=== PATIENT | male | born 1965 | race Caucasian/White ===

== ENCOUNTER 2020-05-20 20:27 | Emergency (ER) | payer OTHER ==
--- NOTE | 2020-05-20 20:37 | ERPHSYRPT ---
- History of Present Illness Time Seen by Provider: 05/20/20 20:35 Source: patient Exam Limitations: no limitations Physician History: Patient is a 54-year-old male presents to our ED with complaints of dizziness. Dizziness started approximately 1 hour prior to arrival. Patient states that when he stands up he feels as though he is losing his balance towards his right side. No syncope. No associated nausea or vomiting. No blurred vision. No falls or injuries. No trauma. No associated numbness tingling or weakness. No history of CVA. Patient is a smoker. Patient is morbidly obese. Symptoms are constant. No specific worsening or improving factors. No associated chest pain or shortness of breath. Patient voices no other complaints concerns at this t shaun. Timing/Duration: today Severity: moderate Modifying Factors: Improves With: nothing Associated Symptoms: No nausea, No vomiting, No abdominal pain, No shortness of breath, No heartburn, No diaphoresis, No cough, No chest pain, No fever, No headaches, No syncope, No seizure, No weakness Allergies/Adverse Reactions: No Known Drug Allergies Allergy (Verified 05/20/20 20:43) Home Medications: Gabapentin 600 mg PO BID 05/20/20 [History] Vilazodone HCl [Viibryd] 20 mg PO DAILY 05/20/20 [History] - Review of Systems Constitutional: No Symptoms, No Fever, No Chills Eyes: No Symptoms Ears, Nose, & Throat: No Symptoms Respiratory: No Symptoms, No Cough, No Dyspnea Cardiac: No Symptoms, No Chest Pain, No Edema, No Syncope Abdominal/Gastrointestinal: No Symptoms, No Abdominal Pain, No Nausea, No Vomiting, No Diarrhea Genitourinary Symptoms: No Symptoms, No Dysuria Musculoskeletal: No Symptoms, No Back Pain, No Neck Pain Skin: No Symptoms, No Rash Neurological: No Symptoms, No Dizziness, No Focal Weakness, No Sensory Changes Psychological: No Symptoms Endocrine: No Symptoms Hematologic/Lymphatic: No Symptoms Immunological/Allergic: No Symptoms All Other Systems: Reviewed and Negative - Nursing Vital Signs Nursing Vital Signs: Initial Vital Signs Temperature 97.4 F 05/20/20 20:31 Pulse Rate 67 05/20/20 20:31 Respiratory Rate 18 05/20/20 20:31 Blood Pressure 173/105 05/20/20 20:31 O2 Sat by Pulse Oximetry 95 05/20/20 20:31 Pain Scale Pain Intensity 0 - Physical Exam General Appearance: no apparent distress, alert Eye Exam: PERRL/EOMI, eyes nml inspection Ears, Nose, Throat Exam: normal ENT inspection, TMs normal, pharynx normal, moist mucous membranes Neck Exam: normal inspection, non-tender, supple, full range of motion Respiratory Exam: normal breath sounds, lungs clear, No respiratory distress Cardiovascular Exam: regular rate/rhythm, normal heart sounds, normal peripheral pulses Gastrointestinal/Abdomen Exam: soft, normal bowel sounds, No tenderness, No mass Back Exam: normal inspection, normal range of motion, No CVA tenderness, No vertebral tenderness Extremity Exam: normal inspection, normal range of motion, pelvis stable Neurologic Exam: alert, oriented x 3, cooperative, normal mood/affect, nml cerebellar function, nml station & gait, sensation nml, other (Head motion does not reproduce symptomology.), No motor deficits, No confusion, No intoxicated appearance, No motor weakness, No facial droop, No slurred speech, No aphasia, No dysarthria Skin Exam: normal color, warm, dry, No rash Lymphatic Exam: No adenopathy SpO2 Interpretation: normal SpO2: 95 O2 Delivery: Room Air - Course Nursing assessment & vital signs reviewed: Yes EKG Interpreted by Me: RATE (67), Sinus Rhythm, NORMAL AXIS, NORMAL INTERVALS - Radiology Exams Chest X-ray Interpretation: Interpreted by me (No consolidation no infiltrates no effusion. Normal bony thorax. No pneumothorax. Borderline cardiomegaly.) - CT Exams Head CT Interpretation: Tele-radiologist Report (Intracranial abnormality.) Ordered Tests: Active Orders 24 hr Category Date Time Status Manager Pmo STAT Care 05/20/20 20:35 Active EKG-ER Only STAT Care 05/20/20 20:34 Active IV Insertion STAT Care 05/20/20 20:34 Active NPO (ED) STAT Care 05/20/20 20:34 Active Pulse Oximetry (ED) STAT Care 05/20/20 20:34 Active CHEST 1 VIEW (PORTABLE) Stat Exams 05/20/20 20:39 Taken HEAD WITHOUT CONTRAST [CT] Stat Exams 05/20/20 20:34 Taken CBC W DIFF Stat Lab 05/20/20 20:53 Completed CMP Stat Lab 05/20/20 20:53 Completed ETHYL ALCOHOL Stat Lab 05/20/20 20:53 Completed MAGNESIUM Stat Lab 05/20/20 20:53 Completed TROPONIN Q3H Lab 05/20/20 20:53 Completed TROPONIN Q3H Lab 05/20/20 23:45 Ordered TROPONIN Q3H Lab 05/21/20 02:45 Ordered TROPONIN Q3H Lab 05/21/20 05:45 Ordered TROPONIN Q3H Lab 05/21/20 08:45 Ordered TSH [TSH, 3RD Generation] Stat Lab 05/20/20 20:53 Completed Urine Triage Profile Stat Lab 05/20/20 21:00 Completed Transfer Order Routine Transfer 05/20/20 Ordered Medication Summary Generic Name Dose Route Start Last Admin Trade Name Freq PRN Reason Stop Dose Admin Sodium Chloride 1,000 mls @ 100 mls/hr 05/20/20 20:45 05/20/20 20:43 Sodium Chloride 0.9% 1000 Ml IV 06/19/20 20:44 100 mls/hr .Q10H MICKI Administration Discontinued Medications Generic Name Dose Route Start Last Admin Trade Name Freq PRN Reason Stop Dose Admin Aspirin 324 mg 05/20/20 22:25 05/20/20 22:28 Baby Aspirin 81 Mg Chew PO 05/20/20 22:26 324 mg STAT ONE Administration Nicotine 21 mg 05/20/20 22:09 05/20/20 22:19 Nicoderm Cq 21 Mg TOP 05/20/20 22:10 21 mg STAT ONE Administration Lab/Rad Data: Laboratory Result Diagrams 05/20/20 20:53 05/20/20 20:53 Laboratory Results 05/20/20 05/20/20 05/20/20 Range/Units 21:00 20:53 20:53 WBC (4.0-10.5) K/mm3 RBC (4.1-5.6) M/mm3 Hgb (12.5-18.0) gm/dl Hct (42-50) % MCV (78-100) fl MCH (26-32) pg MCHC (32-36) g/dl RDW (11.5-14.0) % Plt Count (150-450) K/mm3 MPV (7.5-11.0) fl Gran % (36.0-66.0) % Eos # (Auto) (0-0.5) Absolute Lymphs (auto) (1.0-4.6) Absolute Monos (auto) (0.0-1.3) Lymphocytes % (24.0-44.0) % Monocytes % (0.0-12.0) % Eosinophils % (0.00-5.0) % Basophils % (0.0-0.4) % Absolute Granulocytes (1.4-6.9) Basophils # (0-0.4) Sodium (137-145) mmol/L Potassium (3.5-5.1) mmol/L Chloride (98-107) mmol/L Carbon Dioxide (22-30) mmol/L Anion Gap (5-15) MEQ/L BUN (9-20) mg/dL Creatinine (0.66-1.25) mg/dL Estimated GFR ML/MIN Glucose (74-106) mg/dL Calcium (8.4-10.2) mg/dL Magnesium (1.6-2.3) mg/dL Total Bilirubin (0.2-1.3) mg/dL AST (17-59) U/L ALT (0-50) U/L Alkaline Phosphatase (38-126) U/L Troponin I < 0.012 (0.000-0.034) ng/mL Serum Total Protein (6.3-8.2) g/dL Albumin (3.5-5.0) g/dL TSH 3rd Generation 1.130 (0.47-4.68) mIU/L Urine Opiates Level NEGATIVE (NEGATIVE) Ur Methadone NEGATIVE (NEGATIVE) Urine Barbiturates NEGATIVE (NEGATIVE) Ur Phencyclidine (PCP) NEGATIVE (NEGATIVE) Urine Amphetamine NEGATIVE (NEGATIVE) U Benzodiazepine Level NEGATIVE (NEGATIVE) Urine Cocaine NEGATIVE (NEGATIVE) Urine Marijuana (THC) NEGATIVE (NEGATIVE) Ethyl Alcohol (0-10) mg/dL 05/20/20 05/20/20 Range/Units 20:53 20:53 WBC 8.7 (4.0-10.5) K/mm3 RBC 4.10 (4.1-5.6) M/mm3 Hgb 13.4 (12.5-18.0) gm/dl Hct 41.1 L (42-50) % MCV 100.2 H (78-100) fl MCH 32.7 H (26-32) pg MCHC 32.6 (32-36) g/dl RDW 14.0 (11.5-14.0) % Plt Count 182 (150-450) K/mm3 MPV 9.4 (7.5-11.0) fl Gran % 48.0 (36.0-66.0) % Eos # (Auto) 0.13 (0-0.5) Absolute Lymphs (auto) 3.79 (1.0-4.6) Absolute Monos (auto) 0.59 (0.0-1.3) Lymphocytes % 43.4 (24.0-44.0) % Monocytes % 6.8 (0.0-12.0) % Eosinophils % 1.5 (0.00-5.0) % Basophils % 0.3 (0.0-0.4) % Absolute Granulocytes 4.19 (1.4-6.9) Basophils # 0.03 (0-0.4) Sodium 139 (137-145) mmol/L Potassium 3.9 (3.5-5.1) mmol/L Chloride 106 (98-107) mmol/L Carbon Dioxide 29 (22-30) mmol/L Anion Gap 8.5 (5-15) MEQ/L BUN 17 (9-20) mg/dL Creatinine 1.22 (0.66-1.25) mg/dL Estimated GFR > 60.0 ML/MIN Glucose 142 H (74-106) mg/dL Calcium 9.4 (8.4-10.2) mg/dL Magnesium 2.2 (1.6-2.3) mg/dL Total Bilirubin 0.40 (0.2-1.3) mg/dL AST 44 (17-59) U/L ALT 52 H (0-50) U/L Alkaline Phosphatase 92 (38-126) U/L Troponin I (0.000-0.034) ng/mL Serum Total Protein 7.8 (6.3-8.2) g/dL Albumin 4.2 (3.5-5.0) g/dL TSH 3rd Generation (0.47-4.68) mIU/L Urine Opiates Level (NEGATIVE) Ur Methadone (NEGATIVE) Urine Barbiturates (NEGATIVE) Ur Phencyclidine (PCP) (NEGATIVE) Urine Amphetamine (NEGATIVE) U Benzodiazepine Level (NEGATIVE) Urine Cocaine (NEGATIVE) Urine Marijuana (THC) (NEGATIVE) Ethyl Alcohol < 10 (0-10) mg/dL - Progress Progress: improved Progress Note: 05/20/20 22:27 Patient reassessed. Repeat neuro exam within normal limits. We attempted to ambulate patient and upon standing patient began to feel dizzy. However patient states that he feels dizzy while he is lying flat. Dizziness is not worse when he moves his head. CT negative for acute intracranial pathology. IV fluids infused. Aspirin administered. Case discussed with patient's primary care doctor Dr. Jones subs admission to observation. Plan of care discussed with patient. He agrees to admission to [facility] for further evaluation and treatment. Discussed with .: Tim Will see patient in: hospital (observation) Counseled pt/family regarding: lab results, diagnosis, rad results, smoking cessation - Departure Departure Disposition: Observation Clinical Impression: Dizziness, Near syncope Condition: Stable Critical Care Time: No Referrals: KUSH KAUR [ACTIVE STAFF] - Instructions: Dizziness, Nonvertigo, (DC)
[2020-05-20] MEDS ORDERED: Sodium Chloride 0.9% 1000 ML 1,000 ML ONE (20:41)
[2020-05-20] MEDS ORDERED: Sodium Chloride 0.9% 1000 ML 1,000 ML IV SCH (20:45)
[2020-05-20 20:56] LABS: Absolute Neutrophil Ct (ANC) 4.19 (1.4-6.9); BASOPHIL % 0.3 % (0.0-0.4); Basophil (Absolute #) 0.03 (0-0.4); Eosinophil % 1.5 % (0.00-5.0); Eosinophil (Absolute #) 0.13 (0-0.5); Hematocrit 41.1 % (42-50); Hemoglobin 13.4 gm/dl (12.5-18.0); Lymphocyte (Absolute #) 3.79 (1.0-4.6); Lymphocytes % 43.4 % (24.0-44.0); Mean Cell Volume 100.2 fl (78-100); Mean Corpuscular Hemoglobin 32.7 pg (26-32); Mean Corpuscular Hgb Concent. 32.6 g/dl (32-36); Mean Platelet Volume 9.4 fl (7.5-11.0); Monocyte (Absolute #) 0.59 (0.0-1.3); Monocytes % 6.8 % (0.0-12.0); Platelet Count 182 K/mm3 (150-450); White Blood Count 8.7 K/mm3 (4.0-10.5)
[2020-05-20 21:08] LABS: ALBUMIN 4.2 g/dL (3.5-5.0); ALKALINE PHOSPHATASE 92 U/L (38-126); ANION GAP 8.5 MEQ/L (5-15); BLOOD UREA NITROGEN 17 mg/dL (9-20); CHLORIDE 106 mmol/L (98-107); Calcium 9.4 mg/dL (8.4-10.2); Carbon Dioxide 29 mmol/L (22-30); Creatinine 1 1.22 mg/dL (0.66-1.25); EST GLOMERULAR FILTRATION RATE > 60.0 ML/MIN; Glucose 142 mg/dL (74-106); MAGNESIUM 2.2 mg/dL (1.6-2.3); Potassium 3.9 mmol/L (3.5-5.1); SGOT/AST 44 U/L (17-59); SGPT/ALT 52 U/L (0-50); SODIUM 139 mmol/L (137-145); Total Protein 7.8 g/dL (6.3-8.2)
[2020-05-20 21:15] LABS: ETHYL ALCOHOL < 10 mg/dL (0-10)
[2020-05-20 21:47] LABS: Amphetamine,Urine NEGATIVE (NEGATIVE); Barbiturate,Urine NEGATIVE (NEGATIVE); Benzodiazepine,Urine NEGATIVE (NEGATIVE); Cocaine,Urine NEGATIVE (NEGATIVE); Methadone,Urine NEGATIVE (NEGATIVE); Opiate,Urine NEGATIVE (NEGATIVE); PCP,Urine NEGATIVE (NEGATIVE); THC,Urine NEGATIVE (NEGATIVE)
[2020-05-20] MEDS ORDERED: Nicoderm CQ 21 MG TOP ONE (22:09)
[2020-05-20] MEDS ORDERED: BABY ASPIRIN 81 MG CHEW PO ONE (22:25)
[2020-05-20 23:09] VITALS: BP 173/108; PULSE 75; O2SAT 96
--- NOTE | 2020-05-21 07:46 | XRAY ---
Exam: AP portable chest film from 05/20/2010. Comparison: None. Indication: 54-year-old with dizziness. The transverse heart size appears within normal limits. There is adequate inflation of the lungs. The vascular lung markings are mildly prominent in a diffuse manner. I see no air space infiltrates or pleural effusions. There is no pneumothorax. I cannot exclude some fine Maty B-lines within the costophrenic angles. No acute osseous process is seen. Mild osteophyte formation is seen within the lower thoracic spine. Impression: 1. Mild diffuse bilateral passive venous congestion is seen. Correlate clinically. I called this report to the emergency Department physician at approximately 7:35 AM on 05/21/2020. 2. No air space infiltrates or other acute disease is seen.
--- NOTE | 2020-05-21 08:20 | XRAY ---
Exam: CT of the head without IV contrast from 05/20/2020. CTDI: 53.92 mGy Comparison: None. Indication: 54-year-old male with dizziness. Technique: Non-IV contrast axial images were obtained through the brain. Reconstructed coronal and sagittal images were created and reviewed. Findings: The ventricles appear of normal size and configuration. No focal mass effect or midline shift is seen. No acute intracranial bleed or abnormal extra-axial fluid collection is seen. Some calcification is seen within the anterior aspect of the falx of incidental note. The thomas matter-white matter interfaces appear unremarkable. No abnormal low attenuation cortical density is seen to suggest an infarct within a major cerebral or cerebellar artery distribution. Structures of the posterior fossa appear unremarkable. The cortical sulci and basilar cisterns appear unremarkable for age. The calvarium of the skull is intact without evidence of fracture. The visualized paranasal sinuses appear clear without evidence of air-fluid levels or significant mucoperiosteal thickening. Mastoid air cells are clear without effusion. The middle ear cavities appear grossly unremarkable. The orbits reveal no gross abnormality. Impression: 1. No acute intracranial bleed or other acute intracranial process is seen.
== END 2020-05-20 23:27 | disposition left against medical advice (07) ==
LOC: ED 20:27
DX: R42 Dizziness and giddiness (principal); R55 Syncope and collapse
CPT/HCPCS: 36415; 70450; 71045; 80053; 80307; 83735; 84443; 84484; 85025; 93005; 93041; 94760; 96360; 99284; G0480; A9270-GY

== ENCOUNTER 2021-01-12 08:39 | Emergency (ER) | payer OTHER ==
--- NOTE | 2021-01-12 09:26 | ERPHSYRPT ---
- History of Present Illness Source: patient Exam Limitations: other (Poor historian) Patient Subjective Stated Complaint: Pt states "My left ear is swollen and hurts, I have a cyst on my groin that is hurting, my lower back is numb and sending tingles down my legs and my left leg has been swollen but it is a little better now." Triage Nursing Assessment: Pt presented alert and oriented X 3, skin pwd Pt states several complaints going on for the past 6 months. Pt stated he does not have a dr now. Pt ambualtes with an upright slow gait with the assistance of a cane. Physician History: 55 yo wm w multiple complaints. Pt is obese and noncompliant w his medical care. He complains of L otalgia/Dc/pain x 1 wk. Pt also complains of L inguinal abscess x 3-4 days and related to my nurse that his LLE has been edematous but improving. He has not gotten his CV19 vaccine, and I educated him on the importance of doing so w his medical conditions. Pt is not taking any meds for his HTN/DM. He denies CP/dyspnea/cough/fever/coryza/dysuria/hematuria. Timing/Duration: other (3days+) Modifying Factors: Improves With: nothing Associated Symptoms: No nausea, No vomiting, No abdominal pain, No shortness of breath, No heartburn, No diaphoresis, No cough, No chills, No chest pain, No fever, No headaches, No loss of appetite, No malaise, No rash, No syncope, No seizure, No weakness Allergies/Adverse Reactions: No Known Drug Allergies Allergy (Verified 05/20/20 20:43) Home Medications: Gabapentin 600 mg PO BID 05/20/20 [History] Vilazodone HCl [Viibryd] 20 mg PO DAILY 05/20/20 [History] Hx Tetanus, Diphtheria Vaccination/Date Given: No Hx Influenza Vaccination/Date Given: Yes Hx Pneumococcal Vaccination/Date Given: No Immunizations Up to Date: Yes Travel Risk - International Travel Have you traveled outside of the country in past 3 weeks: No - Coronavirus Screening Are you exhibiting any of the following symptoms?: No Close contact with a COVID-19 positive Pt in past 14-21 Days: No - Vaccine Status Have you recieved a Covid-19 vaccination: No - Review of Systems Constitutional: No Symptoms Eyes: No Symptoms Ears, Nose, & Throat: No Symptoms, Ear Pain Respiratory: No Symptoms Cardiac: No Symptoms Abdominal/Gastrointestinal: No Symptoms Genitourinary Symptoms: No Symptoms Musculoskeletal: No Symptoms, Back Pain Skin: Skin Lesions Neurological: No Symptoms Psychological: No Symptoms Endocrine: No Symptoms Hematologic/Lymphatic: No Symptoms Immunological/Allergic: No Symptoms - Past Medical History Pertinent Past Medical History: Yes Neurological History: No Pertinent History ENT History: No Pertinent History Cardiac History: No Pertinent History Respiratory History: No Pertinent History Endocrine Medical History: No Pertinent History Musculoskeletal History: Degenerative Disk Disease GI Medical History: No Pertinent History History: No Pertinent History Psycho-Social History: No Pertinent History, Bipolar Male Reproductive Disorders: No Pertinent History Other Medical History: 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, CARPEL TUNNEL - Past Surgical History Past Surgical History: Yes Male Surgical History: Vasectomy - Social History Smoking Status: Current every day smoker How long have you smoked: years Exposure to second hand smoke: Yes Drug Use: none Patient Lives Alone: No Significant Family History: no pertinent family hx - Nursing Vital Signs Nursing Vital Signs: Initial Vital Signs Temperature 97.5 F 01/12/21 08:45 Pulse Rate 93 H 01/12/21 08:45 Respiratory Rate 20 01/12/21 08:45 Blood Pressure 176/105 01/12/21 08:45 O2 Sat by Pulse Oximetry 96 01/12/21 08:45 Pain Scale Pain Intensity 4 - Physical Exam General Appearance: no apparent distress, obese (Morbidly) Eye Exam: PERRL/EOMI, eyes nml inspection Ears, Nose, Throat Exam: pharynx normal, other (L canal edematous w exudat) Neck Exam: normal inspection, non-tender Respiratory Exam: normal breath sounds, lungs clear, airway intact, No respiratory distress Cardiovascular Exam: regular rate/rhythm, normal heart sounds, No murmur Gastrointestinal/Abdomen Exam: soft, normal bowel sounds, No tenderness Male Genitalia Exam: normal genitalia Back Exam: vertebral tenderness (Chronic Lumbar) Neurologic Exam: alert, oriented x 3, 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, 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 tested, normal mood/affect Skin Exam: other (L inguinal lesion/No discharge/No erythema) SpO2 Interpretation: normal SpO2: 96 O2 Delivery: Room Air - Course Nursing assessment & vital signs reviewed: Yes - Radiology Ultrasound Exam Venous Lower Extremity Ultrasound: discussed w/radiologist (No DVT) Other Ultrasound: discussed w/radiologist (L groin complex cystic mass) Ordered Tests: Active Orders 24 hr Category Date Time Status EXTREMITY NON VASCULAR [US] Stat Exams 01/12/21 10:57 Completed VENOUS UNILAT/LIMITED EXTREMIT [US] Stat Exams 01/12/21 10:57 Completed CBC W DIFF Stat Lab 01/12/21 09:20 Completed CMP Stat Lab 01/12/21 09:20 Completed Lab/Rad Data: Laboratory Result Diagrams 01/12/21 09:20 01/12/21 09:20 Laboratory Results 01/12/21 01/12/21 Range/Units 09:20 09:20 WBC 9.8 (4.0-10.5) K/mm3 RBC 4.94 (4.1-5.6) M/mm3 Hgb 15.8 (12.5-18.0) gm/dl Hct 48.3 (42-50) % MCV 97.8 (78-100) fl MCH 32.0 (26-32) pg MCHC 32.7 (32-36) g/dl RDW 12.9 (11.5-14.0) % Plt Count 242 (150-450) K/mm3 MPV 9.1 (7.5-11.0) fl Gran % 72.2 H (36.0-66.0) % Eos # (Auto) 0.11 (0-0.5) Absolute Lymphs (auto) 2.03 (1.0-4.6) Absolute Monos (auto) 0.57 (0.0-1.3) Lymphocytes % 20.7 L (24.0-44.0) % Monocytes % 5.8 (0.0-12.0) % Eosinophils % 1.1 (0.00-5.0) % Basophils % 0.2 (0.0-0.4) % Absolute Granulocytes 7.08 H (1.4-6.9) Basophils # 0.02 (0-0.4) Sodium 137 (137-145) mmol/L Potassium 3.5 (3.5-5.1) mmol/L Chloride 99 (98-107) mmol/L Carbon Dioxide 29 (22-30) mmol/L Anion Gap 13.2 (5-15) MEQ/L BUN 9 (9-20) mg/dL Creatinine 0.85 (0.66-1.25) mg/dL Estimated GFR > 60.0 ML/MIN Glucose 168 H (74-106) mg/dL Calcium 9.8 (8.4-10.2) mg/dL Total Bilirubin 0.70 (0.2-1.3) mg/dL AST 48 (17-59) U/L ALT 50 (0-50) U/L Alkaline Phosphatase 99 (38-126) U/L Serum Total Protein 9.0 H (6.3-8.2) g/dL Albumin 4.9 (3.5-5.0) g/dL - Progress Counseled pt/family regarding: lab results, diagnosis, need for follow-up, rad results - Departure Departure Disposition: Home Clinical Impression: Otitis externa, Abscess, Hypertension, Diabetes Condition: Stable Critical Care Time: No Referrals: JOEL PRITCHETT MD [ACTIVE STAFF] - Instructions: High Blood Pressure (DC), Boil (DC), Hyperglycemia, Adult (DC), Outer Ear Infection (DC) Additional Instructions: Follow up with a family MD VINES to manage blood pressure/Diabetes Start doxycycline twice a day for 10 days Floxin otic 10drops left ear twice a day for 10 days Return to ER for increasing size of left groin mass/redness/temperature greater than 100.5 Prescriptions: Doxycycline Monohydrate 100 mg PO BID #20 tablet Ofloxacin Otic 5 ml [Floxin Otic 5 ML] 10 drops OT BID #5 ml
[2021-01-12 09:39] LABS: Absolute Neutrophil Ct (ANC) 7.08 (1.4-6.9); BASOPHIL % 0.2 % (0.0-0.4); Basophil (Absolute #) 0.02 (0-0.4); Eosinophil % 1.1 % (0.00-5.0); Eosinophil (Absolute #) 0.11 (0-0.5); Hematocrit 48.3 % (42-50); Hemoglobin 15.8 gm/dl (12.5-18.0); Lymphocyte (Absolute #) 2.03 (1.0-4.6); Lymphocytes % 20.7 % (24.0-44.0); Mean Cell Volume 97.8 fl (78-100); Mean Corpuscular Hgb Concent. 32.7 g/dl (32-36); Mean Platelet Volume 9.1 fl (7.5-11.0); Monocyte (Absolute #) 0.57 (0.0-1.3); Monocytes % 5.8 % (0.0-12.0); Neutrophil % 72.2 % (36.0-66.0); Platelet Count 242 K/mm3 (150-450); Red Blood Count 4.94 M/mm3 (4.1-5.6); Red Cell Distribution Width 12.9 % (11.5-14.0); White Blood Count 9.8 K/mm3 (4.0-10.5)
[2021-01-12 09:50] LABS: ALBUMIN 4.9 g/dL (3.5-5.0); ALKALINE PHOSPHATASE 99 U/L (38-126); ANION GAP 13.2 MEQ/L (5-15); BLOOD UREA NITROGEN 9 mg/dL (9-20); CHLORIDE 99 mmol/L (98-107); Calcium 9.8 mg/dL (8.4-10.2); Carbon Dioxide 29 mmol/L (22-30); Creatinine 1 0.85 mg/dL (0.66-1.25); EST GLOMERULAR FILTRATION RATE > 60.0 ML/MIN; Glucose 168 mg/dL (74-106); Potassium 3.5 mmol/L (3.5-5.1); SGOT/AST 48 U/L (17-59); SGPT/ALT 50 U/L (0-50); SODIUM 137 mmol/L (137-145)
--- NOTE | 2021-01-12 11:04 | XRAY ---
Indication: Left leg edema. Two-dimensional sonogram and color Doppler imaging of the major venous vessels of the left leg was performed. Comparison: None No thrombus seen in the examined deep venous vessels of the left leg including greater saphenous vein. Veins demonstrate normal compressibility. Venous waveforms are normal with and without augmentation. Impression: Left leg negative for DVT.
--- NOTE | 2021-01-12 11:06 | XRAY ---
Indication: Left groin mass. Two-dimensional targeted soft tissue ultrasound left groin demonstrates subcutaneous 1.9 x 0.9 x 1.3 cm heterogeneous mass with intraluminal echodensities and posterior shadowing favoring complex cystic mass. No abnormal color Doppler flow. No other solid/cystic mass.
[2021-01-12 11:14] VITALS: BP 137/87; PULSE 71
[2021-01-12 11:20] VITALS: O2SAT 96
== END 2021-01-12 11:35 | disposition home or self-care (01) ==
LOC: ED 08:39
DX: H60.90 Unspecified otitis externa, unspecified ear (principal); L02.91 Cutaneous abscess, unspecified; I10 Essential (primary) hypertension; E11.9 Type 2 diabetes mellitus without complications
CPT/HCPCS: 36000; 36415; 76881; 80053; 85025; 93971; 99284

== ENCOUNTER 2021-08-19 11:38 | Day surgery (SDC) | payer OTHER ==
[2021-08-19] MEDS ORDERED: Sodium Chloride 0.9% 10 ML FLUSH Syringe IJ ONE (11:39)
[2021-08-19] MEDS ORDERED: Depo-Medrol 40 MG/ML IM ONE (11:39)
[2021-08-19] MEDS ORDERED: Xylocaine 1% Vial 30 ML PF IJ ONE (11:39)
--- NOTE | 2021-08-19 16:50 | XRAY ---
23 seconds of fluoroscopy was used in surgery for a lumbar GAYE.
--- NOTE | 2021-08-19 18:44 | XRAY ---
Indication: Lumbar GAYE. Intraoperative fluoroscopy provided for 23 seconds. 2 digital spot image submitted for interpretation demonstrates midline posterior needle tip projecting just posterior to the L4-L5 interspace. Correlate with intraoperative findings/report.
== END 2021-08-19 15:00 | disposition home or self-care (01) ==
LOC: SDC-PAIN 11:38
PROVIDERS: ATTEND Psychiatry & Neurology Pain Medicine
DX: M54.17 Radiculopathy, lumbosacral region (principal); I10 Essential (primary) hypertension; E11.9 Type 2 diabetes mellitus without complications; Z79.899 Other long term (current) drug therapy
CPT/HCPCS: 62323; 72100; 77003; 82947; J1030; J2001; Q9966

== ENCOUNTER 2021-10-21 13:43 | Day surgery (SDC) | payer OTHER ==
[2021-10-21] MEDS ORDERED: Xylocaine 1% Vial 30 ML PF IJ ONE (13:44)
[2021-10-21] MEDS ORDERED: BUPIVACAINE 0.5% VIAL IJ ONE (13:44)
[2021-10-21] MEDS ORDERED: Depo-Medrol 40 MG/ML IM ONE (13:44)
--- NOTE | 2021-10-21 17:30 | XRAY ---
Indication: Left shoulder and subacromial bursa injection. Intraoperative fluoroscopy provided for 56 seconds. 2 digital spot image submitted for interpretation demonstrates needle tip projecting over the left glenohumeral joint superiorly. Second needle tip is subacromial. Small amount of contrast injected for both needle tip placement. Correlate with intraoperative findings/report.
--- NOTE | 2021-10-23 09:57 | XRAY ---
56 seconds fluoroscopy time in surgery for intra-articular and subachromial injections of the left shoulder.
== END 2021-10-21 17:02 | disposition home or self-care (01) ==
LOC: SDC-PAIN 13:43
PROVIDERS: ATTEND Psychiatry & Neurology Pain Medicine
DX: M19.012 Primary osteoarthritis, left shoulder (principal); M75.52 Bursitis of left shoulder; E11.9 Type 2 diabetes mellitus without complications; Z79.899 Other long term (current) drug therapy
CPT/HCPCS: 20610; 73030; 77002; 82947; J1030; J2001; Q9966

== ENCOUNTER 2021-10-28 07:41 | Day surgery (SDC) | payer OTHER ==
[2021-10-28] MEDS ORDERED: Depo-Medrol 40 MG/ML IM ONE (07:42)
[2021-10-28] MEDS ORDERED: LIDOCAINE HCL 2% 100 MG/5 ML IJ ONE (07:42)
[2021-10-28] MEDS ORDERED: DIPRIVAN 200 MG/20 ML IV ONE (09:13)
[2021-10-28] MEDS ORDERED: Lactated Ringers 1,000 ML IV ONE (09:25)
--- NOTE | 2021-10-28 10:09 | XRAY ---
Indication: Bilateral L4-S1 MBB. Intraoperative fluoroscopy provided for 28 seconds. Single digital spot image submitted for interpretation demonstrates posterior needle tips projecting over the expected left and right L4-S1 nerve roots. Correlate with intraoperative findings/report.
--- NOTE | 2021-10-28 10:13 | XRAY ---
28 seconds fluoroscopy time in surgery for bilateral L4-S1 MBB.
== END 2021-10-28 09:40 | disposition home or self-care (01) ==
LOC: SDC-PAIN 07:41
PROVIDERS: ATTEND Psychiatry & Neurology Pain Medicine
DX: M47.816 Spondylosis without myelopathy or radiculopathy, lumbar region (principal); E11.9 Type 2 diabetes mellitus without complications; Z79.899 Other long term (current) drug therapy
CPT/HCPCS: 64493; 64494; 72020; 77002; 82947; J1030; J2704

== ENCOUNTER 2021-12-09 08:46 | Day surgery (SDC) | payer OTHER ==
[2021-12-09] MEDS ORDERED: BUPIVACAINE 0.5% VIAL IJ ONE (08:47)
[2021-12-09] MEDS ORDERED: Lactated Ringers 1,000 ML IV ONE (10:15)
[2021-12-09] MEDS ORDERED: DIPRIVAN 200 MG/20 ML IV ONE (10:38)
--- NOTE | 2021-12-09 11:53 | XRAY ---
Indication: Bilateral L4-S1 MBB Intraoperative fluoroscopy provided for 15 seconds. Single digital spot image submitted for interpretation demonstrates posterior needle tips projecting over the expected left and right L4-S1 nerve roots. Correlate with intraoperative findings/report.
--- NOTE | 2021-12-09 12:11 | XRAY ---
15 seconds fluoroscopy time in surgery for bilateral L4-S1 MBB.
== END 2021-12-09 11:05 | disposition home or self-care (01) ==
LOC: SDC-PAIN 08:46
PROVIDERS: ATTEND Psychiatry & Neurology Pain Medicine
DX: M47.816 Spondylosis without myelopathy or radiculopathy, lumbar region (principal); E11.9 Type 2 diabetes mellitus without complications; Z79.899 Other long term (current) drug therapy
CPT/HCPCS: 64493; 64494; 72020; 77002; 82947; J2704

== ENCOUNTER 2022-01-06 09:52 | Day surgery (SDC) | payer MEDICAID, OTHER ==
[2022-01-06] MEDS ORDERED: Depo-Medrol 40 MG/ML IM ONE (09:53)
[2022-01-06] MEDS ORDERED: BUPIVACAINE 0.5% VIAL IJ ONE (09:53)
[2022-01-06] MEDS ORDERED: Xylocaine 1% Vial 30 ML PF IJ ONE (09:53)
[2022-01-06] MEDS ORDERED: DIPRIVAN 200 MG/20 ML IV ONE (12:11)
[2022-01-06] MEDS ORDERED: Lactated Ringers 1,000 ML IV ONE (12:33)
--- NOTE | 2022-01-06 13:35 | XRAY ---
Indication: Right L4-S1 RFA Intraoperative fluoroscopy provided for 30 seconds. 3 digital spot image submitted for interpretation demonstrates posterior needle tips projecting over the expected right L4-S1 nerve roots. Correlate with intraoperative findings/report.
--- NOTE | 2022-01-08 10:29 | XRAY ---
30 seconds fluoroscopy marcelino ein surgery for right L4-S1 RFA.
== END 2022-01-06 12:45 | disposition home or self-care (01) ==
LOC: SDC-PAIN 09:52
PROVIDERS: ATTEND Psychiatry & Neurology Pain Medicine
DX: M47.816 Spondylosis without myelopathy or radiculopathy, lumbar region (principal); I10 Essential (primary) hypertension; E11.9 Type 2 diabetes mellitus without complications; Z79.899 Other long term (current) drug therapy
CPT/HCPCS: 64635; 64636; 72020; 72100; 77002; 82947; J1030; J2001; J2704

== ENCOUNTER 2022-01-13 10:00 | Day surgery (SDC) | payer MEDICAID ==
[2022-01-13] MEDS ORDERED: Marcaine Mpf 0.5% Vial 30 Ml IJ ONE (10:01)
[2022-01-13] MEDS ORDERED: Depo-Medrol 40 MG/ML IM ONE (10:01)
[2022-01-13] MEDS ORDERED: Xylocaine 1% Vial 30 ML PF IJ ONE (10:01)
[2022-01-13] MEDS ORDERED: DIPRIVAN 200 MG/20 ML IV ONE ×3 (11:23→11:46)
[2022-01-13] MEDS ORDERED: Lactated Ringers 1,000 ML IV ONE (11:32)
--- NOTE | 2022-01-14 13:31 | XRAY ---
18 seconds of fluoroscopy was used in surgery for a left L4-S1 RFA.
--- NOTE | 2022-01-14 13:31 | XRAY ---
Indication: Left L4-S1 RFA. Intraoperative fluoroscopy provided for 18 seconds. 3 digital spot image submitted for interpretation demonstrates posterior needle tips projecting over the expected left L4-S1 nerve roots. Correlate with intraoperative findings/report.
== END 2022-01-13 12:08 | disposition home or self-care (01) ==
LOC: SDC-PAIN 10:00
PROVIDERS: ATTEND Psychiatry & Neurology Pain Medicine
DX: M47.816 Spondylosis without myelopathy or radiculopathy, lumbar region (principal); E11.9 Type 2 diabetes mellitus without complications; Z79.899 Other long term (current) drug therapy
CPT/HCPCS: 64635; 64636; 72100; 77002; 82947; J1030; J2001; J2704

== ENCOUNTER 2022-04-07 15:40 | Day surgery (SDC) | payer OTHER ==
[2022-04-07] MEDS ORDERED: Marcaine Mpf 0.5% Vial 30 Ml IJ ONE (15:41)
[2022-04-07] MEDS ORDERED: Depo-Medrol 40 MG/ML IM ONE (15:41)
[2022-04-07] MEDS ORDERED: XYLOCAINE-MPF 1% 5ML SDV IJ ONE (15:41)
--- NOTE | 2022-04-07 19:45 | XRAY ---
Indication: Left shoulder and subacromial bursa injection. Intraoperative fluoroscopy provided for 54 seconds. 4 digital spot image submitted for interpretation demonstrates needle tip projecting over the left glenohumeral joint superiorly. Second needle tip subacromial. Small amount of contrast injected for both needle tip placement. Correlate with intraoperative findings/report.
--- NOTE | 2022-04-08 08:43 | XRAY ---
54 seconds of fluoroscopy was used in surgery for a left shoulder intra-articular and subacromial bursa injections.
== END 2022-04-07 18:15 | disposition home or self-care (01) ==
LOC: SDC-PAIN 15:40
PROVIDERS: ATTEND Psychiatry & Neurology Pain Medicine
DX: M17.12 Unilateral primary osteoarthritis, left knee (principal); M75.52 Bursitis of left shoulder; E11.9 Type 2 diabetes mellitus without complications; Z79.899 Other long term (current) drug therapy
CPT/HCPCS: 20610; 73030; 77002; 82947; J1030; Q9966

== ENCOUNTER 2022-09-22 09:25 | Day surgery (SDC) | payer OTHER ==
[2022-09-22] MEDS ORDERED: LIDOCAINE HCL 2% 100 MG/5 ML IJ ONE (09:26)
--- NOTE | 2022-09-22 11:17 | XRAY ---
Indication: Right C2-C4 MBB. Intraoperative fluoroscopy provided for 20 seconds. 4 digital spot image submitted for interpretation demonstrates posterior needle tips projecting over the expected right C2-C4 nerve root. Correlate with intraoperative findings/report.
--- NOTE | 2022-09-22 11:21 | XRAY ---
20 seconds fluoroscopy time in surgery for right C2-C4 MBB.
[2022-09-22] MEDS ORDERED: Lactated Ringers 1,000 ML IV ONE (13:26)
== END 2022-09-22 10:49 | disposition home or self-care (01) ==
LOC: SDC-PAIN 09:25
PROVIDERS: ATTEND Psychiatry & Neurology Pain Medicine
DX: M47.812 Spondylosis without myelopathy or radiculopathy, cervical region (principal); E11.9 Type 2 diabetes mellitus without complications; Z79.899 Other long term (current) drug therapy
CPT/HCPCS: 64490; 64491; 72040; 77002; 82947

== ENCOUNTER 2023-01-12 15:54 | Day surgery (SDC) | payer OTHER ==
[2023-01-12] MEDS ORDERED: Depo-Medrol 40 MG/ML IM ONE (15:55)
[2023-01-12] MEDS ORDERED: BUPIVACAINE 0.5% VIAL IJ ONE (15:55)
[2023-01-12] MEDS ORDERED: LIDOCAINE HCL 1% 50 MG/5 ML VL PF IJ ONE (15:55)
--- NOTE | 2023-01-12 23:30 | XRAY ---
Indication: Left shoulder and subacromial bursa injection. Intraoperative fluoroscopy provided for 29 seconds. 2 digital spot image submitted for interpretation demonstrates needle tip projecting over the left glenohumeral joint superiorly. Second needle tip subacromial. Small amount of contrast injected for both needle tip placement. Correlate with intraoperative findings/report.
--- NOTE | 2023-01-13 15:07 | XRAY ---
29 seconds of fluoroscopy was used in surgery for a left intra-articular shoulder and subacromial bursa injection.
== END 2023-01-12 17:37 | disposition home or self-care (01) ==
LOC: SDC-PAIN 15:54
PROVIDERS: ATTEND Psychiatry & Neurology Pain Medicine
DX: M19.012 Primary osteoarthritis, left shoulder (principal); M75.52 Bursitis of left shoulder; E11.9 Type 2 diabetes mellitus without complications; Z79.899 Other long term (current) drug therapy
CPT/HCPCS: 20610; 73030; 77002; 82947; J1030; J2001; Q9966

== ENCOUNTER 2023-10-05 15:24 | Day surgery (SDC) | payer MEDICARE ==
[2023-10-05] MEDS ORDERED: XYLOCAINE-MPF 1% 5ML SDV IJ ONE (15:25)
[2023-10-05] MEDS ORDERED: BUPIVACAINE 0.5% VIAL IJ ONE (15:25)
[2023-10-05] MEDS ORDERED: Depo-Medrol 40 MG/ML IM ONE (15:25)
--- NOTE | 2023-10-05 20:22 | XRAY ---
Indication: Bilateral SI joint injection. Intraoperative fluoroscopy provided for 33 seconds. 5 digital spot images submitted for interpretation demonstrates posterior needle tip projecting over the left and right SI joint. Small amount of contrast injected for needle tip placement. Correlate with intraoperative findings/report.
--- NOTE | 2023-10-06 08:44 | XRAY ---
33 seconds of fluoroscopy was used in surgery for a bilateral sacroiliac joint injection.
== END 2023-10-05 18:24 | disposition home or self-care (01) ==
LOC: SDC-PAIN 15:24
PROVIDERS: ATTEND Psychiatry & Neurology Pain Medicine
DX: M46.1 Sacroiliitis, not elsewhere classified (principal); E11.9 Type 2 diabetes mellitus without complications
CPT/HCPCS: 27096; 72202; 77002; 82947; G0260; J1030; Q9966

== ENCOUNTER 2024-11-04 10:29 | Observation (INO) | payer MEDICARE ==
--- NOTE | 2024-11-04 10:47 | ERPHSYRPT ---
- History of Present Illness Source: patient Exam Limitations: no limitations Physician History: Patient has a fever. He is also not been eating or drinking. He says he feels like he is in a pass out. He says whenever he stands he gets lightheaded. He is tachycardic.He has not had any chest pain.He says that whenever he exerts himself he gets shortness of breath and feels like he is about to pass out. He has not had a syncopal episode yet. Symptoms have been going on for about 4 days. Nothing seems to make them any better. He does not have a productive cough but he is coughing some. Allergies/Adverse Reactions: No Known Drug Allergies Allergy (Verified 11/04/24 10:37) Home Medications: Fluticasone Propionate [Flonase NASAL] 1 spray INTRANASAL DAILY 11/04/24 [History] Fluticasone/Vilanterol [Breo Ellipta 100-25 Mcg Inhalr] 1 puff PO DAILY 11/04/24 [History] Glimepiride 4 mg [Amaryl 4 mg] 4 mg PO DAILY 11/04/24 [History] Ipratropium/Albuterol Sulfate [Iprat-Albut 0.5-3(2.5) mg/3 ml] 1 neb IH QID PRN 11/04/24 [History] Meloxicam 7.5 mg PO BID 11/04/24 [History] Metformin HCl 500 mg [Glucophage 500 MG] 500 mg PO BID 11/04/24 [History] Mupirocin [Bactroban OINTMENT] See Rx Instructions .ROUTE .COMPLEX 11/04/24 [History] Rosuvastatin Calcium [Crestor] 10 mg PO DAILY 11/04/24 [History] Semaglutide [Ozempic] 0.25 mg SQ WEEKLY 11/04/24 [History] Valsartan/Hydrochlorothiazide [Valsartan-Hctz 80-12.5 mg Tab] 1 tab PO DAILY 11/04/24 [History] Hx Tetanus, Diphtheria Vaccination/Date Given: No Hx Influenza Vaccination/Date Given: Yes Hx Pneumococcal Vaccination/Date Given: No - Review of Systems Constitutional: Fatigue, Malaise, Weakness Eyes: No Symptoms Ears, Nose, & Throat: No Symptoms Respiratory: Cough, Dyspnea on Exertion (FONSECA) Cardiac: Palpitations Abdominal/Gastrointestinal: No Symptoms, No Abdominal Pain, No Nausea, No Vomiting Genitourinary Symptoms: No Symptoms Musculoskeletal: No Symptoms Skin: No Symptoms All Other Systems: Reviewed and Negative - Past Medical History Cardiac History: No Pertinent History Endocrine Medical History: No Pertinent History Other Medical History: 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, CARPEL TUNNEL - Past Surgical History Past Surgical History: Yes Male Surgical History: Vasectomy Significant Family History: no pertinent family hx - Social History Smoking Status: Current every day smoker How long have you smoked: years Exposure to second hand smoke: Yes Drug Use: none Patient Lives Alone: No - Nursing Vital Signs Nursing Vital Signs: Initial Vital Signs Temperature 101.6 F 11/04/24 10:36 Pulse Rate 121 H 11/04/24 10:36 Respiratory Rate 21 11/04/24 10:36 Blood Pressure 128/80 11/04/24 10:36 O2 Sat by Pulse Oximetry 98 11/04/24 10:36 Pain Scale Pain Intensity 0 - Physical Exam General Appearance: mild distress Eye Exam: PERRL/EOMI Ears, Nose, Throat Exam: normal ENT inspection Neck Exam: normal inspection Respiratory Exam: normal breath sounds, lungs clear, respiratory distress (Patient is hyperventilating but he is very anxious. He is getting good O2 sats.), wheezing (Mild expiratory wheezing but he is moving air fairly well), No chest tenderness Cardiovascular Exam: tachycardia Gastrointestinal/Abdomen Exam: soft, normal bowel sounds, No tenderness, No distention Back Exam: normal inspection Extremity Exam: normal inspection Neurologic Exam: alert, other (Very anxious) Skin Exam: normal color SpO2 Interpretation: normal - Course EKG Interpreted by Me: RATE, Sinus Tach, NORMAL AXIS, Right Bundle Branch Block, NORMAL ST-T Ordered Tests: Active Orders 24 hr Category Date Time Status EKG-ER Only STAT Care 11/04/24 10:50 Active CHEST 1 VIEW (PORTABLE) Stat Exams 11/04/24 10:50 Taken CHEST WITH CONTRAST [CT] Stat Exams 11/04/24 11:53 Completed BLOOD CULTURE Stat Lab 11/04/24 11:20 Received CBC W DIFF Stat Lab 11/04/24 11:15 Completed CMP Stat Lab 11/04/24 11:15 Completed D-DIMER QUANTITATIVE Stat Lab 11/04/24 11:15 Completed Lactic Acid Stat Lab 11/04/24 12:10 Completed TROPONIN Q4H Lab 11/04/24 11:15 Completed TROPONIN Q4H Lab 11/04/24 15:00 Ordered TROPONIN Q4H Lab 11/04/24 19:00 Ordered Medication Summary Generic Name Dose Route Start Last Admin Trade Name Reyesq PRN Reason Stop Dose Admin Sodium Chloride 1,000 mls @ 999 mls/hr 11/04/24 13:32 11/04/24 13:36 Sodium Chloride 0.9% 1000 Ml IV 11/04/24 14:32 999 mls/hr .Q1H1M STA Administration Azithromycin 500 mg in 250 mls @ 250 mls/hr 11/05/24 13:41 Zithromax 500 Mg/ 250 Ml Nacl Premix IV 11/05/24 14:40 NOW ONE Discontinued Medications Generic Name Dose Route Start Last Admin Trade Name Andrew PRN Reason Stop Dose Admin Acetaminophen 1,000 mg 11/04/24 11:11 11/04/24 11:13 Acetaminophen 500 Mg Tablet PO 11/04/24 11:12 1,000 mg STAT STA Administration Acetaminophen Confirm 11/04/24 11:13 Acetaminophen 500 Mg Tablet Administered 11/04/24 11:14 Dose 1,000 mg .ROUTE .STK-MED ONE Amoxicillin/Clavulanate Potassium 875 mg 11/04/24 13:34 11/04/24 13:43 Amox Tr/Potassium Clavulanate 875 Mg Tablet PO 11/04/24 13:35 Not Given STAT ONE Amoxicillin/Clavulanate Potassium Confirm 11/04/24 13:38 Amox Tr/Potassium Clavulanate 875 Mg Tablet Administered 11/04/24 13:39 Dose 875 mg .ROUTE .STK-MED ONE Azithromycin 500 mg 11/04/24 13:34 11/04/24 13:40 Azithromycin 250 Mg Tablet PO 11/04/24 13:35 Not Given STAT ONE Azithromycin Confirm 11/04/24 13:38 Azithromycin 250 Mg Tablet Administered 11/04/24 13:39 Dose 500 mg .ROUTE .STK-MED ONE Sodium Chloride 1,000 mls @ 999 mls/hr 11/04/24 12:20 11/04/24 13:34 Sodium Chloride 0.9% 1000 Ml IV 11/04/24 13:20 Infused .Q1H1M STA Infusion Sodium Chloride Confirm 11/04/24 12:23 Sodium Chloride 0.9% 1000 Ml Administered 11/04/24 12:24 Dose 1,000 mls @ ud .ROUTE .STK-MED ONE Sodium Chloride Confirm 11/04/24 13:35 Sodium Chloride 0.9% 1000 Ml Administered 11/04/24 13:36 Dose 1,000 mls @ ud .ROUTE .STK-MED ONE Ceftriaxone Sodium 1 gm in 100 mls @ 200 mls/hr 11/04/24 13:43 11/04/24 13:48 Rocephin 1 Gm / 100 Ml Nacl IV 11/04/24 14:12 200 ml/hr STAT ONE 200 mls/hr Administration Ceftriaxone Sodium Confirm 11/04/24 13:45 Rocephin 1 Gm / 100 Ml Nacl Administered 11/04/24 13:46 Dose 1 gm in 100 mls @ ud IV .STK-MED ONE Lab/Rad Data: Laboratory Result Diagrams 11/04/24 11:15 11/04/24 11:15 Laboratory Results 11/04/24 11/04/24 11/04/24 Range/Units 12:10 11:15 11:15 WBC (4.23-9.07) x10^3/uL RBC (4.63-6.08) x10^6/uL Hgb (13.7-17.5) g/dL Hct (40.1-51.0) % MCV (79.0-92.2) fL MCH (25.7-32.2) pg MCHC (32.3-36.5) g/dL RDW (11.6-14.4) % Plt Count (163-337) x10^3/uL MPV (9.4-12.4) fL Gran % (34.0-67.9) % Immature Gran % (Auto) (0.001-0.429) % Nucleat RBC Rel Count (0.00-0.2) % Eos # (Auto) (0.04-0.54) x10^3/uL Immature Gran # (Auto) (0.001-0.031) x10^3u/L Absolute Lymphs (auto) (1.32-3.57) x10^3/uL Absolute Monos (auto) (0.30-0.82) x10^3/uL Absolute Nucleated RBC (0.00-0.012) x10^3u/L Lymphocytes % (21.8-53.1) % Monocytes % (5.3-12.2) % Eosinophils % (0.8-7.0) % Basophils % (0.2-1.2) % Absolute Granulocytes (1.78-5.38) x10^3/uL Basophils # (0.01-0.08) x10^3/uL D-Dimer 1.70 H* (0.0-0.50) mg/L Sodium (135-145) mmol/L Potassium (3.5-5.1) mmol/L Chloride (98-107) mmol/L Carbon Dioxide (22-30) mmol/L Anion Gap (5-15) MEQ/L BUN (9-20) mg/dL Creatinine (0.66-1.25) mg/dL Estimated GFR ML/MIN Glucose (74-106) mg/dL Lactic Acid 2.7 H (0.4-2.0) Calcium (8.4-10.2) mg/dL Total Bilirubin (0.2-1.3) mg/dL AST (17-59) U/L ALT (0-50) U/L Alkaline Phosphatase (38-126) U/L Troponin I < 0.012 (0.000-0.033) ng/mL Serum Total Protein (6.3-8.2) g/dL Albumin (3.5-5.0) g/dL Influenza Type A Ag (NEGATIVE) Influenza Type B Ag (NEGATIVE) RSV (PCR) (NEGATIVE) SARS-CoV-2 (PCR) (NEGATIVE) 11/04/24 11/04/24 11/04/24 Range/Units 11:15 11:15 10:38 WBC 17.1 H (4.23-9.07) x10^3/uL RBC 4.45 L (4.63-6.08) x10^6/uL Hgb 13.8 (13.7-17.5) g/dL Hct 39.0 L (40.1-51.0) % MCV 87.6 (79.0-92.2) fL MCH 31.0 (25.7-32.2) pg MCHC 35.4 (32.3-36.5) g/dL RDW 12.6 (11.6-14.4) % Plt Count 233 (163-337) x10^3/uL MPV 9.4 (9.4-12.4) fL Gran % 86.9 H (34.0-67.9) % Immature Gran % (Auto) 0.5 H (0.001-0.429) % Nucleat RBC Rel Count 0.0 (0.00-0.2) % Eos # (Auto) 0.01 L (0.04-0.54) x10^3/uL Immature Gran # (Auto) 0.09 H (0.001-0.031) x10^3u/L Absolute Lymphs (auto) 1.37 (1.32-3.57) x10^3/uL Absolute Monos (auto) 0.74 (0.30-0.82) x10^3/uL Absolute Nucleated RBC 0.00 (0.00-0.012) x10^3u/L Lymphocytes % 8.0 L (21.8-53.1) % Monocytes % 4.3 L (5.3-12.2) % Eosinophils % 0.1 L (0.8-7.0) % Basophils % 0.2 (0.2-1.2) % Absolute Granulocytes 14.84 H (1.78-5.38) x10^3/uL Basophils # 0.03 (0.01-0.08) x10^3/uL D-Dimer (0.0-0.50) mg/L Sodium 130 L (135-145) mmol/L Potassium 3.5 (3.5-5.1) mmol/L Chloride 94 L (98-107) mmol/L Carbon Dioxide 18 L (22-30) mmol/L Anion Gap 22.3 H (5-15) MEQ/L BUN 10 (9-20) mg/dL Creatinine 0.79 (0.66-1.25) mg/dL Estimated GFR 103.6 ML/MIN Glucose 193 H (74-106) mg/dL Lactic Acid (0.4-2.0) Calcium 9.1 (8.4-10.2) mg/dL Total Bilirubin 1.50 H (0.2-1.3) mg/dL AST 51 (17-59) U/L ALT 40 (0-50) U/L Alkaline Phosphatase 79 (38-126) U/L Troponin I (0.000-0.033) ng/mL Serum Total Protein 8.1 (6.3-8.2) g/dL Albumin 4.3 (3.5-5.0) g/dL Influenza Type A Ag NEGATIVE (NEGATIVE) Influenza Type B Ag NEGATIVE (NEGATIVE) RSV (PCR) NEGATIVE (NEGATIVE) SARS-CoV-2 (PCR) NEGATIVE (NEGATIVE) - Progress Progress: improved Progress Note: On the differential diagnosis was pulmonary embolism, pneumonia, COVID flu RSV, coronary vascular event. After work him up we ended up getting a CT because he had an elevated D-dimer. It showed a pneumonia. That was also visible on his chest x-ray. I interpreted independently the chest x-ray. His EKG showed no acute findings. A troponin was not elevated on him.He did have an elevated white count. COVID flu and RSV were all negative all the evidence is pointing towards a pneumonia. I discussed inpatient versus outpatient therapy. He is young and is able to keep things down. I encouraged him to go inpatient however he refused to do that.He could use some IV fluids. His lactic acid was 2.6. He was wanting to go home but I do not think that he should. We reencouraged him to get admitted.I spoke with the hospitalist and she agreed to admit him. I started him on Zithromax and Rocephin.His vital signs normalized after he settled down and got some IV fluids. 11/04/24 13:35 11/04/24 13:38 11/04/24 14:15 Medical Desision Making - Discussion of managment Care discussed with:: hospitalist Reviewed:: Test results, Need for additional workup Agreed on:: Treatment plan Will see patient: in hospital - Diagnostic Testing Diagnostic test were ordered, analyzed, and reviewed by me: Yes Radiological Interpretation: Interpreted by me - Risk of complications Low Risk: Low risk of morbidity from additional dx testing or treatment - Departure Departure Disposition: Observation Clinical Impression: Near syncope, Pneumonia Condition: Good Critical Care Time: No Referrals: JOEL PRITCHETT MD [Primary Care Provider] - Follow up/PCP as directed
[2024-11-04] MEDS ORDERED: TYLENOL EXTRA STRENGTH 500 MG ONE (11:13)
[2024-11-04] MEDS: TYLENOL EXTRA STRENGTH 500 MG PO STA (11:13)
[2024-11-04 11:16] LABS: INFLUENZA A NEGATIVE (NEGATIVE); INFLUENZA B NEGATIVE (NEGATIVE); RESPIRATORY SYNCTIAL VIRUS NEGATIVE (NEGATIVE); SARS-CoV-2 Xpert Express NEGATIVE (NEGATIVE)
[2024-11-04 11:25] LABS: Absolute Neutrophil Ct (ANC) 14.84 x10^3/uL (1.78-5.38); BASOPHIL % 0.2 % (0.2-1.2); Basophil (Absolute #) 0.03 x10^3/uL (0.01-0.08); Eosinophil % 0.1 % (0.8-7.0); Eosinophil (Absolute #) 0.01 x10^3/uL (0.04-0.54); Hemoglobin 13.8 g/dL (13.7-17.5); IMMATURE GRAN # 0.09 x10^3u/L (0.001-0.031); IMMATURE GRAN % 0.5 % (0.001-0.429); Lymphocyte (Absolute #) 1.37 x10^3/uL (1.32-3.57); Mean Cell Volume 87.6 fL (79.0-92.2); Mean Corpuscular Hgb Concent. 35.4 g/dL (32.3-36.5); Mean Platelet Volume 9.4 fL (9.4-12.4); Monocyte (Absolute #) 0.74 x10^3/uL (0.30-0.82); Monocytes % 4.3 % (5.3-12.2); Neutrophil % 86.9 % (34.0-67.9); Platelet Count 233 x10^3/uL (163-337); Red Blood Count 4.45 x10^6/uL (4.63-6.08); Red Cell Distribution Width 12.6 % (11.6-14.4); White Blood Count 17.1 x10^3/uL (4.23-9.07)
[2024-11-04 11:39] LABS: ALBUMIN 4.3 g/dL (3.5-5.0); ANION GAP 22.3 MEQ/L (5-15); BILIRUBIN,TOTAL 1.5 mg/dL (0.2-1.3); Calcium 9.1 mg/dL (8.4-10.2); Creatinine 1 0.79 mg/dL (0.66-1.25); EST GLOMERULAR FILTRATION RATE 103.6 ML/MIN; Potassium 3.5 mmol/L (3.5-5.1); Total Protein 8.1 g/dL (6.3-8.2)
[2024-11-04] MEDS ORDERED: Sodium Chloride 0.9% 1000 ML 1,000 ML ONE ×2 (12:23→13:35)
[2024-11-04] MEDS: Sodium Chloride 0.9% 1000 ML 1,000 ML IV STA ×2 (12:32→13:36)
--- NOTE | 2024-11-04 13:08 | XRAY ---
CLINICAL HISTORY: dyspnea, ELEVATED D DIMER COMPARISON: None. TECHNIQUE: Contiguous 3.[address] images of the chest were acquired with the administration of intravenous contrast 95 ml Isovue. Coronal and sagittal reconstructions were obtained. One of the following dose reduction techniques were utilized for this exam: Automated exposure control, adjustment of the mA and/or kV according to patient size, and use of iterative reconstruction FINDINGS: Lungs: Inhomogenous opacification seen in the medial segment of the right middle lobe suggests infective consolidative changes. A few solid nodules in both lung were noted, measuring 0.3-0.7 cm. No pleural effusion or pleural thickening. Mediastinum: Mild reactive-looking right hilum and mediastinal lymphadenopathy. Normal appearance of the thymus. Hilar Structures: Mild reactive-looking right hilum and mediastinal lymphadenopathy. Heart and Great Vessels: Normal heart size and configuration. No pericardial effusion. Normal caliber and course of the thoracic aorta and other great vessels. No significant atherosclerosis or aneurysm. Normal enhancement of the great vessels post-contrast. Pulmonary Arteries: suboptimal study. Inadequate timing of contrast opacification within the pulmonary arteries. Normal size and course of the pulmonary arteries. Esophagus: Normal course and caliber. No masses or dilatation. Bones: No fractures or lytic/sclerotic lesions. Normal bone density and alignment. No evidence of rib fractures. Chest Wall: No masses or soft tissue abnormalities. Upper Abdomen: Visualized portions of the liver, spleen, pancreas, adrenal glands, and kidneys are normal. No abnormalities noted in the visualized upper abdominal organs. Thyroid: Normal size and morphology. No nodules or masses. IMPRESSION: 1. Inadequate timing of contrast opacification within the pulmonary arteries. 2. Inhomogenous opacification seen in the medial segment of the right middle lobe suggests infective consolidative changes. Clinical correlation and follow-up advised. 3. Mild reactive-looking right hilum and mediastinal lymphadenopathy. 4. A few solid nodules in both lung were noted, measuring 0.3-0.7 cm. Follow-up is advised in 3 months (according to Fleischner Society pulmonary nodule recommendations). Electronically Signed by: Cha Saez MD. (11/04/2024 13:04:04 EDT)
[2024-11-04] MEDS ORDERED: Zithromax 250 MG TABLET ONE (13:38)
[2024-11-04] MEDS ORDERED: Augmentin 875-125 Tablet ONE (13:38)
[2024-11-04] MEDS: Zithromax 250 MG TABLET PO ONE (13:40)
[2024-11-04] MEDS: Augmentin 875-125 Tablet PO ONE (13:43)
[2024-11-04] MEDS ORDERED: ROCEPHIN 1 GM / 100 ML NaCl 1 GM/100 ML IVPB IV ONE (13:45)
[2024-11-04] MEDS: ROCEPHIN 1 GM / 100 ML NaCl 1 GM/100 ML IVPB IV ONE (13:48)
[2024-11-04] MEDS ORDERED: Zithromax 500 MG/ 250 ML NaCl Premix 500 MG/250 ML IVPB IV ONE (14:20)
[2024-11-04] MEDS: Zithromax 500 MG/ 250 ML NaCl Premix 500 MG/250 ML IVPB IV ONE (14:21)
--- NOTE | 2024-11-04 15:24 | PCM.HP ---
<SANDI PENN - Last Filed: 11/04/24 15:43> History of Present Illness - Chief Complaint Chief Complaint: sepsis/pneuomonia Date: 11/04/24 History of Present Illness: Mr. Anthony is a 59 year old male with a pmhx of bipolar, HTN, COPD (baseline RA), DMII, and HLD who presented to ED 11/04/24 with complaints of fever, shortness of breath, and light headedness. Patient reports that symptoms began 11/01/24 with fevers (TMax 103.5), progressive shortness of breath, productive cough, nausea/dry heaves, nasal/chest congestion, and poor appetite/energy level. He sought treatment with his PCP OP and was prescribed medications but did not end up picking it up. He has been having episodes of light headedness and profound weakness today which prompted him to report to the ED. His son has recently been sick with similar symptoms. Patient meeting sepsis criteria on arrival with fever, tachycardia, tachypnea, elevated WBC and lactic acidosis.EKG with no acute findings. Ddimer elevated and CT chest performed showing Inhomogenous opacification seen in the medial segment of the right middle lobe suggests infective consolidative changes.A few solid nodules in both lung were noted, measuring 0.3-0.7 cm (three month follow up advised). No pleural effusion or pleural thickening. Mild reactive-looking right hilum and mediastinal lymphadenopathy. Lab findings with leukocytosis, hyponatremia, metabolic/Gap/Lactic acidosis, and elevated Tbili. Patient given 2L IVF bolus, azithromycin, ceftriaxone in ED. Admit for Sepsis secondary to pneumonia. - Review of Systems Constitutional: Fever, Weakness Eyes: No Symptoms Ears, Nose, & Throat: Nose Congestion Respiratory: Cough, Short Of Breath, Wheezing Cardiac: No Symptoms Abdominal/Gastrointestinal: Nausea, Constipation, Other (dry heaves) Genitourinary Symptoms: No Symptoms Musculoskeletal: No Symptoms Skin: Other (closed wound to buttock) Neurological: Dizziness Psychological: No Symptoms Endocrine: No Symptoms Hematologic/Lymphatic: No Symptoms Immunological/Allergic: No Symptoms Medications & Allergies Home Medications: Home Medication List Fluticasone Propionate [Flonase NASAL] 1 spray INTRANASAL DAILY 11/04/24 [History Confirmed 11/04/24] Fluticasone/Vilanterol [Breo Ellipta 100-25 Mcg Inhalr] 1 puff PO DAILY 11/04/24 [History Confirmed 11/04/24] Glimepiride 4 mg [Amaryl 4 mg] 4 mg PO DAILY 11/04/24 [History Confirmed 11/04/24] Ipratropium/Albuterol Sulfate [Iprat-Albut 0.5-3(2.5) mg/3 ml] 1 neb IH QID PRN 11/04/24 [History Confirmed 11/04/24] Meloxicam 7.5 mg PO BID 11/04/24 [History Confirmed 11/04/24] Metformin HCl 500 mg [Glucophage 500 MG] 500 mg PO BID 11/04/24 [History Confirmed 11/04/24] Mupirocin [Bactroban OINTMENT] See Rx Instructions .ROUTE .COMPLEX 11/04/24 [History Confirmed 11/04/24] Rosuvastatin Calcium [Crestor] 10 mg PO DAILY 11/04/24 [History Confirmed 11/04/24] Semaglutide [Ozempic] 0.25 mg SQ WEEKLY 11/04/24 [History Confirmed 11/04/24] Valsartan/Hydrochlorothiazide [Valsartan-Hctz 80-12.5 mg Tab] 1 tab PO DAILY 11/04/24 [History Confirmed 11/04/24] Allergies/Adverse Reactions: Allergies Allergy/AdvReac Type Severity Reaction Status Date / Time No Known Drug Allergies Allergy Verified 11/04/24 16:00 - Past Medical History Past Medical History: Yes Neurological History: No Pertinent History ENT History: No Pertinent History Cardiac History: High Cholesterol, Hypertension Respiratory History: COPD Endocrine Medical History: No Pertinent History Musculoskelatal History: Degenerative Disk Disease GI Medical History: No Pertinent History History: No Pertinent History Pyscho-Social History: Bipolar Male Reproductive Disorders: No Pertinent History Comment: 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, CARPEL TUNNEL - Past Surgical History Past Surgical History: Yes Male Surgical History: Vasectomy Significant Family History: no pertinent family hx - Social History Smoking Status: Former smoker How long have you smoked: years Exposure to second hand smoke: Yes Alcohol: None Drug Use: none - Social Determinants of Health Will the patient participate in the screening: Declined to provide - Physical Exam Vital Signs: Vital Signs - 24 hr Temp Pulse Resp BP BP Pulse Ox 11/04/24 14:30 80 18 119/60 11/04/24 14:01 87 16 100/70 11/04/24 13:30 99.8 F 87 18 136/68 96 11/04/24 13:00 78 18 102/62 98 11/04/24 12:30 80 18 127/80 98 11/04/24 12:00 90 18 98/59 97 11/04/24 11:30 109 H 16 130/66 98 11/04/24 11:00 106 H 23 129/70 99 11/04/24 10:36 101.6 F 121 H 21 128/80 128/80 98 General Appearance: no apparent distress Neurologic Exam: alert, oriented x 3, cooperative Eye Exam: PERRL/EOMI Ears, Nose, Throat Exam: normal ENT inspection Neck Exam: normal inspection Respiratory Exam: diminished breath sounds, wheezing Cardiovascular Exam: regular rate/rhythm, normal heart sounds Gastrointestinal/Abdomen Exam: soft Rectal Exam: deferred Back Exam: normal inspection Extremity Exam: normal inspection Skin Exam: normal color Results - Labs Lab/Micro Results: Lab Results-Last 24 Hours 11/04/24 11/04/24 11/04/24 Range/Units 10:38 11:15 11:15 WBC 17.1 H (4.23-9.07) x10^3/uL RBC 4.45 L (4.63-6.08) x10^6/uL Hgb 13.8 (13.7-17.5) g/dL Hct 39.0 L (40.1-51.0) % MCV 87.6 (79.0-92.2) fL MCH 31.0 (25.7-32.2) pg MCHC 35.4 (32.3-36.5) g/dL RDW 12.6 (11.6-14.4) % Plt Count 233 (163-337) x10^3/uL MPV 9.4 (9.4-12.4) fL Gran % 86.9 H (34.0-67.9) % Immature Gran % (Auto) 0.5 H (0.001-0.429) % Nucleat RBC Rel Count 0.0 (0.00-0.2) % Eos # (Auto) 0.01 L (0.04-0.54) x10^3/uL Immature Gran # (Auto) 0.09 H (0.001-0.031) x10^3u/L Absolute Lymphs (auto) 1.37 (1.32-3.57) x10^3/uL Absolute Monos (auto) 0.74 (0.30-0.82) x10^3/uL Absolute Nucleated RBC 0.00 (0.00-0.012) x10^3u/L Lymphocytes % 8.0 L (21.8-53.1) % Monocytes % 4.3 L (5.3-12.2) % Eosinophils % 0.1 L (0.8-7.0) % Basophils % 0.2 (0.2-1.2) % Absolute Granulocytes 14.84 H (1.78-5.38) x10^3/uL Basophils # 0.03 (0.01-0.08) x10^3/uL D-Dimer (0.0-0.50) mg/L Sodium 130 L (135-145) mmol/L Potassium 3.5 (3.5-5.1) mmol/L Chloride 94 L (98-107) mmol/L Carbon Dioxide 18 L (22-30) mmol/L Anion Gap 22.3 H (5-15) MEQ/L BUN 10 (9-20) mg/dL Creatinine 0.79 (0.66-1.25) mg/dL Estimated GFR 103.6 ML/MIN Glucose 193 H (74-106) mg/dL Lactic Acid (0.4-2.0) Calcium 9.1 (8.4-10.2) mg/dL Total Bilirubin 1.50 H (0.2-1.3) mg/dL AST 51 (17-59) U/L ALT 40 (0-50) U/L Alkaline Phosphatase 79 (38-126) U/L Troponin I (0.000-0.033) ng/mL Serum Total Protein 8.1 (6.3-8.2) g/dL Albumin 4.3 (3.5-5.0) g/dL Influenza Type A Ag NEGATIVE (NEGATIVE) Influenza Type B Ag NEGATIVE (NEGATIVE) RSV (PCR) NEGATIVE (NEGATIVE) SARS-CoV-2 (PCR) NEGATIVE (NEGATIVE) 11/04/24 11/04/24 11/04/24 Range/Units 11:15 11:15 12:10 WBC (4.23-9.07) x10^3/uL RBC (4.63-6.08) x10^6/uL Hgb (13.7-17.5) g/dL Hct (40.1-51.0) % MCV (79.0-92.2) fL MCH (25.7-32.2) pg MCHC (32.3-36.5) g/dL RDW (11.6-14.4) % Plt Count (163-337) x10^3/uL MPV (9.4-12.4) fL Gran % (34.0-67.9) % Immature Gran % (Auto) (0.001-0.429) % Nucleat RBC Rel Count (0.00-0.2) % Eos # (Auto) (0.04-0.54) x10^3/uL Immature Gran # (Auto) (0.001-0.031) x10^3u/L Absolute Lymphs (auto) (1.32-3.57) x10^3/uL Absolute Monos (auto) (0.30-0.82) x10^3/uL Absolute Nucleated RBC (0.00-0.012) x10^3u/L Lymphocytes % (21.8-53.1) % Monocytes % (5.3-12.2) % Eosinophils % (0.8-7.0) % Basophils % (0.2-1.2) % Absolute Granulocytes (1.78-5.38) x10^3/uL Basophils # (0.01-0.08) x10^3/uL D-Dimer 1.70 H* (0.0-0.50) mg/L Sodium (135-145) mmol/L Potassium (3.5-5.1) mmol/L Chloride (98-107) mmol/L Carbon Dioxide (22-30) mmol/L Anion Gap (5-15) MEQ/L BUN (9-20) mg/dL Creatinine (0.66-1.25) mg/dL Estimated GFR ML/MIN Glucose (74-106) mg/dL Lactic Acid 2.7 H (0.4-2.0) Calcium (8.4-10.2) mg/dL Total Bilirubin (0.2-1.3) mg/dL AST (17-59) U/L ALT (0-50) U/L Alkaline Phosphatase (38-126) U/L Troponin I < 0.012 (0.000-0.033) ng/mL Serum Total Protein (6.3-8.2) g/dL Albumin (3.5-5.0) g/dL Influenza Type A Ag (NEGATIVE) Influenza Type B Ag (NEGATIVE) RSV (PCR) (NEGATIVE) SARS-CoV-2 (PCR) (NEGATIVE) - Radiology Impressions Radiology Exams & Impressions: Radiology Procedures Category Date Time Status CHEST 1 VIEW (PORTABLE) Stat Exams 11/04/24 10:50 Taken CHEST WITH CONTRAST [CT] Stat Exams 11/04/24 11:53 Completed Assessment/Plan (1) Sepsis Current Visit: Yes Status: Acute Assessment & Plan: -2/2 most likely to pneumonia -CT chest showing Inhomogenous opacification seen in the medial segment of the right middle lobe suggests infective consolidative changes.A few solid nodules in both lung were noted, measuring 0.3-0.7 cm (three month follow up advised). No pleural effusion or pleural thickening. Mild reactive-looking right hilum and mediastinal lymphadenopathy. -meets criteria with fever, tachycardia, tachypnea, elevated WBC and lactic acidosis -Bcult pending -Sputum culture -WBC reviewed at 17.1- trend -Lactic acid reviewed at 2.7 on admission - received 2L fluid bolus - repeat every 2-4 hours until normal - continue IVF -PPI- protonix -VTE - Lovenox -Target map > 65 -Ceftriaxone/azithromycin started in ED- will continue -Strict I&O -UA -Respiratory panel negative (2) Pneumonia Current Visit: Yes Status: Acute Assessment & Plan: -see sepsis for plan Code(s): J18.9 - PNEUMONIA, UNSPECIFIED ORGANISM (3) Hyponatremia Current Visit: Yes Status: Acute Assessment & Plan: -Sodium reviewed at 130- most likely hypovolemic -Continue IVF Code(s): E87.1 - HYPO-OSMOLALITY AND HYPONATREMIA (4) High anion gap metabolic acidosis Current Visit: Yes Status: Acute Assessment & Plan: -Secondary to sepsis - continue IVF/abx Code(s): E87.29 - OTHER ACIDOSIS (5) Diabetes mellitus Current Visit: Yes Status: Acute Assessment & Plan: -SSI -adjust for steroids -A1c -ADA diet Code(s): E11.9 - TYPE 2 DIABETES MELLITUS WITHOUT COMPLICATIONS (6) Bipolar 1 disorder Current Visit: Yes Status: Acute Assessment & Plan: -continue home meds Code(s): F31.9 - BIPOLAR DISORDER, UNSPECIFIED (7) HLD (hyperlipidemia) Current Visit: Yes Status: Acute Assessment & Plan: -continue statin Code(s): E78.5 - HYPERLIPIDEMIA, UNSPECIFIED (8) Near syncope Current Visit: Yes Status: Acute Assessment & Plan: -most likely secondary to infection - continue IVF -orthostatic vitals -see sepsis for plan (9) Hypertension Current Visit: No Status: Acute Assessment & Plan: -BP stable - continue home meds Code(s): I10 - ESSENTIAL (PRIMARY) HYPERTENSION (10) COPD (chronic obstructive pulmonary disease) Current Visit: Yes Status: Acute Assessment & Plan: -RT eval -Supplemental oxygen with goal spo2 > 91% -Nebs/INH -RT eval and follow -Solumedrol 40mg q12H VTE: Lovenox PPI: protonix Dispo: 1-3 days Code status: Full code Telemedicine Encounter - Telemedicine Encounter Telemedicine Encounter: "The entirety of this encounter was performed via Telemedicine" This visit was performed using real-time audio and video connection between my location and thepatients locationwith the assistance of a surrogateat the patients location. Written or verbal consent was obtained from the patient/guardian to perform this visit usingnchrnew me[facility] institute at las vegaslemedicine technology. Any patient questions regarding the telemedicine interaction were answered. <CORINNA OSBORNE - Last Filed: 11/04/24 23:30> History of Present Illness - Chief Complaint History of Present Illness: is a 59 year old male. - Physical Exam Vital Signs: Vital Signs - 24 hr Temp Pulse Resp BP BP Pulse Ox 11/04/24 20:16 83 18 95 11/04/24 20:00 97.4 F 93 H 22 104/59 98 11/04/24 16:11 81 18 95 11/04/24 15:44 97.9 F 81 22 120/63 99 11/04/24 15:00 108/65 11/04/24 14:30 80 18 119/60 11/04/24 14:01 87 16 100/70 11/04/24 13:30 99.8 F 87 18 136/68 96 11/04/24 13:00 78 18 102/62 98 11/04/24 12:30 80 18 127/80 98 11/04/24 12:00 90 18 98/59 97 11/04/24 11:30 109 H 16 130/66 98 11/04/24 11:00 106 H 23 129/70 99 11/04/24 10:36 101.6 F 121 H 21 128/80 128/80 98 Results - Labs Lab/Micro Results: Lab Results-Last 24 Hours 11/04/24 11/04/24 11/04/24 Range/Units 10:38 11:15 11:15 WBC 17.1 H (4.23-9.07) x10^3/uL RBC 4.45 L (4.63-6.08) x10^6/uL Hgb 13.8 (13.7-17.5) g/dL Hct 39.0 L (40.1-51.0) % MCV 87.6 (79.0-92.2) fL MCH 31.0 (25.7-32.2) pg MCHC 35.4 (32.3-36.5) g/dL RDW 12.6 (11.6-14.4) % Plt Count 233 (163-337) x10^3/uL MPV 9.4 (9.4-12.4) fL Gran % 86.9 H (34.0-67.9) % Immature Gran % (Auto) 0.5 H (0.001-0.429) % Nucleat RBC Rel Count 0.0 (0.00-0.2) % Eos # (Auto) 0.01 L (0.04-0.54) x10^3/uL Immature Gran # (Auto) 0.09 H (0.001-0.031) x10^3u/L Absolute Lymphs (auto) 1.37 (1.32-3.57) x10^3/uL Absolute Monos (auto) 0.74 (0.30-0.82) x10^3/uL Absolute Nucleated RBC 0.00 (0.00-0.012) x10^3u/L Lymphocytes % 8.0 L (21.8-53.1) % Monocytes % 4.3 L (5.3-12.2) % Eosinophils % 0.1 L (0.8-7.0) % Basophils % 0.2 (0.2-1.2) % Absolute Granulocytes 14.84 H (1.78-5.38) x10^3/uL Basophils # 0.03 (0.01-0.08) x10^3/uL D-Dimer (0.0-0.50) mg/L Sodium 130 L (135-145) mmol/L Potassium 3.5 (3.5-5.1) mmol/L Chloride 94 L (98-107) mmol/L Carbon Dioxide 18 L (22-30) mmol/L Anion Gap 22.3 H (5-15) MEQ/L BUN 10 (9-20) mg/dL Creatinine 0.79 (0.66-1.25) mg/dL Estimated GFR 103.6 ML/MIN Glucose 193 H (74-106) mg/dL POC Glucometer (74 to 106) mg/dL Hemoglobin A1c (4.5-6.0) % Lactic Acid (0.4-2.0) Calcium 9.1 (8.4-10.2) mg/dL Total Bilirubin 1.50 H (0.2-1.3) mg/dL AST 51 (17-59) U/L ALT 40 (0-50) U/L Alkaline Phosphatase 79 (38-126) U/L Troponin I (0.000-0.033) ng/mL Serum Total Protein 8.1 (6.3-8.2) g/dL Albumin 4.3 (3.5-5.0) g/dL Procalcitonin (0.030-0.080) ng/mL Influenza Type A Ag NEGATIVE (NEGATIVE) Influenza Type B Ag NEGATIVE (NEGATIVE) RSV (PCR) NEGATIVE (NEGATIVE) SARS-CoV-2 (PCR) NEGATIVE (NEGATIVE) 11/04/24 11/04/24 11/04/24 Range/Units 11:15 11:15 11:15 WBC (4.23-9.07) x10^3/uL RBC (4.63-6.08) x10^6/uL Hgb (13.7-17.5) g/dL Hct (40.1-51.0) % MCV (79.0-92.2) fL MCH (25.7-32.2) pg MCHC (32.3-36.5) g/dL RDW (11.6-14.4) % Plt Count (163-337) x10^3/uL MPV (9.4-12.4) fL Gran % (34.0-67.9) % Immature Gran % (Auto) (0.001-0.429) % Nucleat RBC Rel Count (0.00-0.2) % Eos # (Auto) (0.04-0.54) x10^3/uL Immature Gran # (Auto) (0.001-0.031) x10^3u/L Absolute Lymphs (auto) (1.32-3.57) x10^3/uL Absolute Monos (auto) (0.30-0.82) x10^3/uL Absolute Nucleated RBC (0.00-0.012) x10^3u/L Lymphocytes % (21.8-53.1) % Monocytes % (5.3-12.2) % Eosinophils % (0.8-7.0) % Basophils % (0.2-1.2) % Absolute Granulocytes (1.78-5.38) x10^3/uL Basophils # (0.01-0.08) x10^3/uL D-Dimer 1.70 H* (0.0-0.50) mg/L Sodium (135-145) mmol/L Potassium (3.5-5.1) mmol/L Chloride (98-107) mmol/L Carbon Dioxide (22-30) mmol/L Anion Gap (5-15) MEQ/L BUN (9-20) mg/dL Creatinine (0.66-1.25) mg/dL Estimated GFR ML/MIN Glucose (74-106) mg/dL POC Glucometer (74 to 106) mg/dL Hemoglobin A1c 5.93 (4.5-6.0) % Lactic Acid (0.4-2.0) Calcium (8.4-10.2) mg/dL Total Bilirubin (0.2-1.3) mg/dL AST (17-59) U/L ALT (0-50) U/L Alkaline Phosphatase (38-126) U/L Troponin I < 0.012 (0.000-0.033) ng/mL Serum Total Protein (6.3-8.2) g/dL Albumin (3.5-5.0) g/dL Procalcitonin (0.030-0.080) ng/mL Influenza Type A Ag (NEGATIVE) Influenza Type B Ag (NEGATIVE) RSV (PCR) (NEGATIVE) SARS-CoV-2 (PCR) (NEGATIVE) 11/04/24 11/04/24 11/04/24 Range/Units 12:10 15:15 15:15 WBC (4.23-9.07) x10^3/uL RBC (4.63-6.08) x10^6/uL Hgb (13.7-17.5) g/dL Hct (40.1-51.0) % MCV (79.0-92.2) fL MCH (25.7-32.2) pg MCHC (32.3-36.5) g/dL RDW (11.6-14.4) % Plt Count (163-337) x10^3/uL MPV (9.4-12.4) fL Gran % (34.0-67.9) % Immature Gran % (Auto) (0.001-0.429) % Nucleat RBC Rel Count (0.00-0.2) % Eos # (Auto) (0.04-0.54) x10^3/uL Immature Gran # (Auto) (0.001-0.031) x10^3u/L Absolute Lymphs (auto) (1.32-3.57) x10^3/uL Absolute Monos (auto) (0.30-0.82) x10^3/uL Absolute Nucleated RBC (0.00-0.012) x10^3u/L Lymphocytes % (21.8-53.1) % Monocytes % (5.3-12.2) % Eosinophils % (0.8-7.0) % Basophils % (0.2-1.2) % Absolute Granulocytes (1.78-5.38) x10^3/uL Basophils # (0.01-0.08) x10^3/uL D-Dimer (0.0-0.50) mg/L Sodium (135-145) mmol/L Potassium (3.5-5.1) mmol/L Chloride (98-107) mmol/L Carbon Dioxide (22-30) mmol/L Anion Gap (5-15) MEQ/L BUN (9-20) mg/dL Creatinine (0.66-1.25) mg/dL Estimated GFR ML/MIN Glucose (74-106) mg/dL POC Glucometer (74 to 106) mg/dL Hemoglobin A1c (4.5-6.0) % Lactic Acid 2.7 H (0.4-2.0) Calcium (8.4-10.2) mg/dL Total Bilirubin (0.2-1.3) mg/dL AST (17-59) U/L ALT (0-50) U/L Alkaline Phosphatase (38-126) U/L Troponin I < 0.012 (0.000-0.033) ng/mL Serum Total Protein (6.3-8.2) g/dL Albumin (3.5-5.0) g/dL Procalcitonin 0.264 H (0.030-0.080) ng/mL Influenza Type A Ag (NEGATIVE) Influenza Type B Ag (NEGATIVE) RSV (PCR) (NEGATIVE) SARS-CoV-2 (PCR) (NEGATIVE) 11/04/24 11/04/24 11/04/24 Range/Units 16:19 18:42 22:18 WBC (4.23-9.07) x10^3/uL RBC (4.63-6.08) x10^6/uL Hgb (13.7-17.5) g/dL Hct (40.1-51.0) % MCV (79.0-92.2) fL MCH (25.7-32.2) pg MCHC (32.3-36.5) g/dL RDW (11.6-14.4) % Plt Count (163-337) x10^3/uL MPV (9.4-12.4) fL Gran % (34.0-67.9) % Immature Gran % (Auto) (0.001-0.429) % Nucleat RBC Rel Count (0.00-0.2) % Eos # (Auto) (0.04-0.54) x10^3/uL Immature Gran # (Auto) (0.001-0.031) x10^3u/L Absolute Lymphs (auto) (1.32-3.57) x10^3/uL Absolute Monos (auto) (0.30-0.82) x10^3/uL Absolute Nucleated RBC (0.00-0.012) x10^3u/L Lymphocytes % (21.8-53.1) % Monocytes % (5.3-12.2) % Eosinophils % (0.8-7.0) % Basophils % (0.2-1.2) % Absolute Granulocytes (1.78-5.38) x10^3/uL Basophils # (0.01-0.08) x10^3/uL D-Dimer (0.0-0.50) mg/L Sodium (135-145) mmol/L Potassium (3.5-5.1) mmol/L Chloride (98-107) mmol/L Carbon Dioxide (22-30) mmol/L Anion Gap (5-15) MEQ/L BUN (9-20) mg/dL Creatinine (0.66-1.25) mg/dL Estimated GFR ML/MIN Glucose (74-106) mg/dL POC Glucometer 188 H 93 (74 to 106) mg/dL Hemoglobin A1c (4.5-6.0) % Lactic Acid (0.4-2.0) Calcium (8.4-10.2) mg/dL Total Bilirubin (0.2-1.3) mg/dL AST (17-59) U/L ALT (0-50) U/L Alkaline Phosphatase (38-126) U/L Troponin I < 0.012 (0.000-0.033) ng/mL Serum Total Protein (6.3-8.2) g/dL Albumin (3.5-5.0) g/dL Procalcitonin (0.030-0.080) ng/mL Influenza Type A Ag (NEGATIVE) Influenza Type B Ag (NEGATIVE) RSV (PCR) (NEGATIVE) SARS-CoV-2 (PCR) (NEGATIVE) Accuchecks Date 11/04/24 Time 16:54 - Radiology Impressions Radiology Exams & Impressions: Radiology Procedures Category Date Time Status CHEST 1 VIEW (PORTABLE) Stat Exams 11/04/24 10:50 Completed CHEST WITH CONTRAST [CT] Stat Exams 11/04/24 11:53 Completed - Other Procedures and Tests Respiratory Therapy 11/04/24 15:56 Respiratory Therapy Consult ONCE Telemedicine Encounter - Telemedicine Encounter Telemedicine Encounter: "The entirety of this encounter was performed via Telemedicine" This visit was performed using real-time audio and video connection between my location and thepatients locationwith the assistance of a surrogateat the patients location. Written or verbal consent was obtained from the patient/guardian to perform this visit using[employer] technology. Any patient questions regarding the telemedicine interaction were answered. ANURAG Encounter - ANURAG Encounter Attestation ANURAG Encounter Attestation: "CECILE Godfrey andquinteniscussed pertinent aspects of their care with Sandi Penn and agree with the history, physical exam (any modifications based on my personal exam will be noted below), assessment, and plan as outlined in original note. Please see immediately below for my summary of findings and additional assessment and plan along with any meaningful corrections/explanations to the Subjective/Objective portions of the ANURAG note will be noted." My portion of the encounter took place via telemedicine. -Patient has been sick for a few days witih fever, cough, shortness of breath, found to have sepsis secondary to pnemonia. Agree with ceftriaxone/aZithromycin.
[2024-11-04] MEDS ORDERED: Zofran 4 MG/2 ML VIAL IV PRN (15:56)
[2024-11-04] MEDS ORDERED: TYLENOL 325 MG PO PRN (15:56)
[2024-11-04] MEDS ORDERED: HUMALOG SQ PRN (15:56)
[2024-11-04] MEDS ORDERED: DUONEB 0.5-3 MG/3 ml Neb IH PRN (16:21)
[2024-11-04] MEDS: Sodium Chloride 0.9% 1000 ML 1,000 ML IV SCH (16:30)
[2024-11-04] MEDS: PROTONIX 40 MG IV IV SCH (16:39)
--- NOTE | 2024-11-04 19:58 | XRAY ---
Indication: Near syncope. Short of breath. Comparison: October 15, 2024 Portable chest demonstrates new right perihilar infiltrate/atelectasis. Remaining heart and left lung unremarkable. Bony thorax intact again with mild degenerative changes.
[2024-11-04] MEDS: DUONEB 0.5-3 MG/3 ml Neb IH SCH (20:14)
[2024-11-04] MEDS: Advair Hfa 115/21 Common canister IH SCH (20:15)
[2024-11-04] MEDS ORDERED: solu-MEDROL ONE (21:18)
[2024-11-04] MEDS: MELOXICAM PO SCH (21:19)
[2024-11-04] MEDS: solu-MEDROL 40 MG, Sterile H2O 10 ml 1 ML IV SCH (21:19)
[2024-11-05 05:25] LABS: Absolute Neutrophil Ct (ANC) 9.67 x10^3/uL (1.78-5.38); BASOPHIL % 0.2 % (0.2-1.2); Basophil (Absolute #) 0.02 x10^3/uL (0.01-0.08); Eosinophil (Absolute #) 0 x10^3/uL (0.04-0.54); Hematocrit 39.2 % (40.1-51.0); IMMATURE GRAN # 0.05 x10^3u/L (0.001-0.031); IMMATURE GRAN % 0.5 % (0.001-0.429); Lymphocyte (Absolute #) 0.89 x10^3/uL (1.32-3.57); Lymphocytes % 8.2 % (21.8-53.1); Mean Cell Volume 92.7 fL (79.0-92.2); Mean Corpuscular Hemoglobin 30.7 pg (25.7-32.2); Mean Corpuscular Hgb Concent. 33.2 g/dL (32.3-36.5); Mean Platelet Volume 9.8 fL (9.4-12.4); Monocyte (Absolute #) 0.22 x10^3/uL (0.30-0.82); Neutrophil % 89.1 % (34.0-67.9); Platelet Count 236 x10^3/uL (163-337); Red Blood Count 4.23 x10^6/uL (4.63-6.08); Red Cell Distribution Width 13.1 % (11.6-14.4); White Blood Count 10.9 x10^3/uL (4.23-9.07)
[2024-11-05 07:25] LABS: ALBUMIN 4.4 g/dL (3.5-5.0); ANION GAP 19.2 MEQ/L (5-15); BILIRUBIN,TOTAL 0.9 mg/dL (0.2-1.3); Calcium 8.8 mg/dL (8.4-10.2); Creatinine 1 0.8 mg/dL (0.66-1.25); EST GLOMERULAR FILTRATION RATE 103.2 ML/MIN; Potassium 4.2 mmol/L (3.5-5.1); Total Protein 8.5 g/dL (6.3-8.2)
[2024-11-05] MEDS ORDERED: HYDROCHLOROTHIAZIDE PO SCH (10:00)
[2024-11-05] MEDS ORDERED: [UNRECOGNIZED DRUG - OTHER] PO SCH (10:00)
[2024-11-05] MEDS ORDERED: VALSARTAN PO SCH (10:00)
[2024-11-05] MEDS ORDERED: NON-FORMULARY ITEM (Fluticasone/Vilanterol [Breo Ellipta 100-25 Mcg Inhalr] 1 EACH Blst.W. PO SCH (10:00)
[2024-11-05] MEDS ORDERED: NON-FORMULARY ITEM (Rosuvastatin Calcium [Crestor] 10 MG Tablet) PO SCH (10:00)
[2024-11-05] MEDS: ROCEPHIN 1 GM / 100 ML NaCl 1 GM/100 ML IVPB IV SCH (10:56)
[2024-11-05] MEDS: DIOVAN PO SCH (10:57)
[2024-11-05] MEDS: ZOCOR 20MG PO SCH (10:57)
[2024-11-05] MEDS: HYDRODIURIL PO SCH (10:57)
[2024-11-05] MEDS: Flonase NASAL NS SCH (10:58)
[2024-11-05] MEDS: Bactroban OINTMENT TOP SCH (10:59)
[2024-11-05] MEDS: ENOXAPARIN SODIUM SQ SCH (11:00)
[2024-11-05 11:23] VITALS: BP 128/79; PULSE 75; RESP 22; TEMP 97.3; O2SAT 98
--- NOTE | 2024-11-05 11:42 | PCM.DS ---
Discharge Summary Date of Admission: 11/04/24 15:18 Date of Discharge: 11/05/24 Admitting Physician: CORINNA OSBORNE MD Primary Care Provider: JOEL PRITCHETT Allergies Allergies No Known Drug Allergies Allergy (Verified 11/04/24 16:00) Hospital Summary - Hospital Course Hospital Course: Mr. Anthony is a 59-year-old male with a medical history of bipolar disorder, hypertension, COPD (baseline on room air), diabetes mellitus type II, and hyperlipidemia, who presented to the ED on 11/04/24 with complaints of fever, shortness of breath, and lightheadedness. He reports that his symptoms started on 11/01/24, with a maximum fever of 103.5F, progressive shortness of breath, productive cough, nausea, dry heaves, nasal and chest congestion, and poor appe tite and energy. He sought treatment from his PCP but did not hand picker the prescribed medications. His symptoms worsened with episodes of lightheadedness and profound weakness, prompting his ED visit. His son had similar symptoms recently. On arrival, Mr. Anthony met sepsis criteria with fever, tachycardia, tachypnea, elevated WBC, and lactic acidosis. A CT chest showed inhomogeneous opacification in the medial segment of the right middle lobe, suggesting infective consolidative changes. Solid nodules in both lungs were noted, with a recommendation for follow-up in three months. There was no pleural effusion or thickening, but mild reactive right hilum and mediastinal lymphadenopathy were observed. Lab results showed leukocytosis, hyponatremia, metabolic acidosis, lactic acidosis, and elevated total bilirubin. He was started on 2L IVF bolus, azithromycin, and ceftriaxone in the ED and admitted for sepsis secondary to pneumonia. 11/05/24, Mr. Anthony reports feeling much better and would like to discharge today. He is on room air with an oxygen saturation of 98% and has clear lung sounds. His D-dimer is 1.70, and a CT with PE protocol showed inadequate timing of contrast opacification within the pulmonary arteries, ruling out a PE as he is not in distress. The plan is to continue outpatient antibiotics for right middle lobe pneumonia and refer him to pulmonology for the bilateral lung nodules and mediastinal lymphadenopathy. He denies any further concerns and will follow up with his PCP as scheduled. - Vitals & Intake/Output Vital Signs: Vital Signs Temperature 97.3 F 11/05/24 11:23 Pulse Rate 75 11/05/24 11:23 Respiratory Rate 22 11/05/24 11:23 Blood Pressure 128/79 11/05/24 11:23 O2 Sat by Pulse Oximetry 98 11/05/24 11:23 Intake & Output: Intake & Output 11/02/24 11/03/24 11/04/24 11/05/24 10:59 10:59 11:59 11:59 Intake Total 1715 Balance 1715 Weight 135 kg - Lab Result Diagrams: 11/05/24 05:19 11/05/24 05:19 Lab Results-Last 24 Hrs: Lab Results-Last 24 Hours 11/04/24 11/04/24 11/04/24 Range/Units 11:15 11:15 11:15 WBC 17.1 H (4.23-9.07) x10^3/uL RBC 4.45 L (4.63-6.08) x10^6/uL Hgb 13.8 (13.7-17.5) g/dL Hct 39.0 L (40.1-51.0) % MCV 87.6 (79.0-92.2) fL MCH 31.0 (25.7-32.2) pg MCHC 35.4 (32.3-36.5) g/dL RDW 12.6 (11.6-14.4) % Plt Count 233 (163-337) x10^3/uL MPV 9.4 (9.4-12.4) fL Gran % 86.9 H (34.0-67.9) % Immature Gran % (Auto) 0.5 H (0.001-0.429) % Nucleat RBC Rel Count 0.0 (0.00-0.2) % Eos # (Auto) 0.01 L (0.04-0.54) x10^3/uL Immature Gran # (Auto) 0.09 H (0.001-0.031) x10^3u/L Absolute Lymphs (auto) 1.37 (1.32-3.57) x10^3/uL Absolute Monos (auto) 0.74 (0.30-0.82) x10^3/uL Absolute Nucleated RBC 0.00 (0.00-0.012) x10^3u/L Lymphocytes % 8.0 L (21.8-53.1) % Monocytes % 4.3 L (5.3-12.2) % Eosinophils % 0.1 L (0.8-7.0) % Basophils % 0.2 (0.2-1.2) % Absolute Granulocytes 14.84 H (1.78-5.38) x10^3/uL Basophils # 0.03 (0.01-0.08) x10^3/uL D-Dimer 1.70 H* (0.0-0.50) mg/L Sodium 130 L (135-145) mmol/L Potassium 3.5 (3.5-5.1) mmol/L Chloride 94 L (98-107) mmol/L Carbon Dioxide 18 L (22-30) mmol/L Anion Gap 22.3 H (5-15) MEQ/L BUN 10 (9-20) mg/dL Creatinine 0.79 (0.66-1.25) mg/dL Estimated GFR 103.6 ML/MIN Glucose 193 H (74-106) mg/dL POC Glucometer (74 to 106) mg/dL Hemoglobin A1c (4.5-6.0) % Lactic Acid (0.4-2.0) Calcium 9.1 (8.4-10.2) mg/dL Total Bilirubin 1.50 H (0.2-1.3) mg/dL AST 51 (17-59) U/L ALT 40 (0-50) U/L Alkaline Phosphatase 79 (38-126) U/L Troponin I (0.000-0.033) ng/mL Serum Total Protein 8.1 (6.3-8.2) g/dL Albumin 4.3 (3.5-5.0) g/dL Procalcitonin (0.030-0.080) ng/mL 11/04/24 11/04/24 11/04/24 Range/Units 11:15 11:15 12:10 WBC (4.23-9.07) x10^3/uL RBC (4.63-6.08) x10^6/uL Hgb (13.7-17.5) g/dL Hct (40.1-51.0) % MCV (79.0-92.2) fL MCH (25.7-32.2) pg MCHC (32.3-36.5) g/dL RDW (11.6-14.4) % Plt Count (163-337) x10^3/uL MPV (9.4-12.4) fL Gran % (34.0-67.9) % Immature Gran % (Auto) (0.001-0.429) % Nucleat RBC Rel Count (0.00-0.2) % Eos # (Auto) (0.04-0.54) x10^3/uL Immature Gran # (Auto) (0.001-0.031) x10^3u/L Absolute Lymphs (auto) (1.32-3.57) x10^3/uL Absolute Monos (auto) (0.30-0.82) x10^3/uL Absolute Nucleated RBC (0.00-0.012) x10^3u/L Lymphocytes % (21.8-53.1) % Monocytes % (5.3-12.2) % Eosinophils % (0.8-7.0) % Basophils % (0.2-1.2) % Absolute Granulocytes (1.78-5.38) x10^3/uL Basophils # (0.01-0.08) x10^3/uL D-Dimer (0.0-0.50) mg/L Sodium (135-145) mmol/L Potassium (3.5-5.1) mmol/L Chloride (98-107) mmol/L Carbon Dioxide (22-30) mmol/L Anion Gap (5-15) MEQ/L BUN (9-20) mg/dL Creatinine (0.66-1.25) mg/dL Estimated GFR ML/MIN Glucose (74-106) mg/dL POC Glucometer (74 to 106) mg/dL Hemoglobin A1c 5.93 (4.5-6.0) % Lactic Acid 2.7 H (0.4-2.0) Calcium (8.4-10.2) mg/dL Total Bilirubin (0.2-1.3) mg/dL AST (17-59) U/L ALT (0-50) U/L Alkaline Phosphatase (38-126) U/L Troponin I < 0.012 (0.000-0.033) ng/mL Serum Total Protein (6.3-8.2) g/dL Albumin (3.5-5.0) g/dL Procalcitonin (0.030-0.080) ng/mL 11/04/24 11/04/24 11/04/24 Range/Units 15:15 15:15 16:19 WBC (4.23-9.07) x10^3/uL RBC (4.63-6.08) x10^6/uL Hgb (13.7-17.5) g/dL Hct (40.1-51.0) % MCV (79.0-92.2) fL MCH (25.7-32.2) pg MCHC (32.3-36.5) g/dL RDW (11.6-14.4) % Plt Count (163-337) x10^3/uL MPV (9.4-12.4) fL Gran % (34.0-67.9) % Immature Gran % (Auto) (0.001-0.429) % Nucleat RBC Rel Count (0.00-0.2) % Eos # (Auto) (0.04-0.54) x10^3/uL Immature Gran # (Auto) (0.001-0.031) x10^3u/L Absolute Lymphs (auto) (1.32-3.57) x10^3/uL Absolute Monos (auto) (0.30-0.82) x10^3/uL Absolute Nucleated RBC (0.00-0.012) x10^3u/L Lymphocytes % (21.8-53.1) % Monocytes % (5.3-12.2) % Eosinophils % (0.8-7.0) % Basophils % (0.2-1.2) % Absolute Granulocytes (1.78-5.38) x10^3/uL Basophils # (0.01-0.08) x10^3/uL D-Dimer (0.0-0.50) mg/L Sodium (135-145) mmol/L Potassium (3.5-5.1) mmol/L Chloride (98-107) mmol/L Carbon Dioxide (22-30) mmol/L Anion Gap (5-15) MEQ/L BUN (9-20) mg/dL Creatinine (0.66-1.25) mg/dL Estimated GFR ML/MIN Glucose (74-106) mg/dL POC Glucometer 188 H (74 to 106) mg/dL Hemoglobin A1c (4.5-6.0) % Lactic Acid (0.4-2.0) Calcium (8.4-10.2) mg/dL Total Bilirubin (0.2-1.3) mg/dL AST (17-59) U/L ALT (0-50) U/L Alkaline Phosphatase (38-126) U/L Troponin I < 0.012 (0.000-0.033) ng/mL Serum Total Protein (6.3-8.2) g/dL Albumin (3.5-5.0) g/dL Procalcitonin 0.264 H (0.030-0.080) ng/mL 11/04/24 11/04/24 11/04/24 Range/Units 17:00 18:42 22:18 WBC (4.23-9.07) x10^3/uL RBC (4.63-6.08) x10^6/uL Hgb (13.7-17.5) g/dL Hct (40.1-51.0) % MCV (79.0-92.2) fL MCH (25.7-32.2) pg MCHC (32.3-36.5) g/dL RDW (11.6-14.4) % Plt Count (163-337) x10^3/uL MPV (9.4-12.4) fL Gran % (34.0-67.9) % Immature Gran % (Auto) (0.001-0.429) % Nucleat RBC Rel Count (0.00-0.2) % Eos # (Auto) (0.04-0.54) x10^3/uL Immature Gran # (Auto) (0.001-0.031) x10^3u/L Absolute Lymphs (auto) (1.32-3.57) x10^3/uL Absolute Monos (auto) (0.30-0.82) x10^3/uL Absolute Nucleated RBC (0.00-0.012) x10^3u/L Lymphocytes % (21.8-53.1) % Monocytes % (5.3-12.2) % Eosinophils % (0.8-7.0) % Basophils % (0.2-1.2) % Absolute Granulocytes (1.78-5.38) x10^3/uL Basophils # (0.01-0.08) x10^3/uL D-Dimer (0.0-0.50) mg/L Sodium (135-145) mmol/L Potassium (3.5-5.1) mmol/L Chloride (98-107) mmol/L Carbon Dioxide (22-30) mmol/L Anion Gap (5-15) MEQ/L BUN (9-20) mg/dL Creatinine (0.66-1.25) mg/dL Estimated GFR ML/MIN Glucose (74-106) mg/dL POC Glucometer 93 (74 to 106) mg/dL Hemoglobin A1c (4.5-6.0) % Lactic Acid 2.3 H (0.4-2.0) Calcium (8.4-10.2) mg/dL Total Bilirubin (0.2-1.3) mg/dL AST (17-59) U/L ALT (0-50) U/L Alkaline Phosphatase (38-126) U/L Troponin I < 0.012 (0.000-0.033) ng/mL Serum Total Protein (6.3-8.2) g/dL Albumin (3.5-5.0) g/dL Procalcitonin (0.030-0.080) ng/mL 11/05/24 11/05/24 11/05/24 Range/Units 05:19 05:19 07:37 WBC 10.9 H (4.23-9.07) x10^3/uL RBC 4.23 L (4.63-6.08) x10^6/uL Hgb 13.0 L (13.7-17.5) g/dL Hct 39.2 L (40.1-51.0) % MCV 92.7 H (79.0-92.2) fL MCH 30.7 (25.7-32.2) pg MCHC 33.2 (32.3-36.5) g/dL RDW 13.1 (11.6-14.4) % Plt Count 236 (163-337) x10^3/uL MPV 9.8 (9.4-12.4) fL Gran % 89.1 H (34.0-67.9) % Immature Gran % (Auto) 0.5 H (0.001-0.429) % Nucleat RBC Rel Count 0.0 (0.00-0.2) % Eos # (Auto) 0 L (0.04-0.54) x10^3/uL Immature Gran # (Auto) 0.05 H (0.001-0.031) x10^3u/L Absolute Lymphs (auto) 0.89 L (1.32-3.57) x10^3/uL Absolute Monos (auto) 0.22 L (0.30-0.82) x10^3/uL Absolute Nucleated RBC 0.00 (0.00-0.012) x10^3u/L Lymphocytes % 8.2 L (21.8-53.1) % Monocytes % 2.0 L (5.3-12.2) % Eosinophils % 0.0 L (0.8-7.0) % Basophils % 0.2 (0.2-1.2) % Absolute Granulocytes 9.67 H (1.78-5.38) x10^3/uL Basophils # 0.02 (0.01-0.08) x10^3/uL D-Dimer (0.0-0.50) mg/L Sodium 138 D (135-145) mmol/L Potassium 4.2 (3.5-5.1) mmol/L Chloride 101 (98-107) mmol/L Carbon Dioxide 22 (22-30) mmol/L Anion Gap 19.2 H (5-15) MEQ/L BUN 8 L (9-20) mg/dL Creatinine 0.80 (0.66-1.25) mg/dL Estimated GFR 103.2 ML/MIN Glucose 218 H (74-106) mg/dL POC Glucometer 181 H (74 to 106) mg/dL Hemoglobin A1c (4.5-6.0) % Lactic Acid (0.4-2.0) Calcium 8.8 (8.4-10.2) mg/dL Total Bilirubin 0.90 (0.2-1.3) mg/dL AST 39 (17-59) U/L ALT 30 (0-50) U/L Alkaline Phosphatase 82 (38-126) U/L Troponin I (0.000-0.033) ng/mL Serum Total Protein 8.5 H (6.3-8.2) g/dL Albumin 4.4 (3.5-5.0) g/dL Procalcitonin (0.030-0.080) ng/mL 11/05/24 Range/Units 11:18 WBC (4.23-9.07) x10^3/uL RBC (4.63-6.08) x10^6/uL Hgb (13.7-17.5) g/dL Hct (40.1-51.0) % MCV (79.0-92.2) fL MCH (25.7-32.2) pg MCHC (32.3-36.5) g/dL RDW (11.6-14.4) % Plt Count (163-337) x10^3/uL MPV (9.4-12.4) fL Gran % (34.0-67.9) % Immature Gran % (Auto) (0.001-0.429) % Nucleat RBC Rel Count (0.00-0.2) % Eos # (Auto) (0.04-0.54) x10^3/uL Immature Gran # (Auto) (0.001-0.031) x10^3u/L Absolute Lymphs (auto) (1.32-3.57) x10^3/uL Absolute Monos (auto) (0.30-0.82) x10^3/uL Absolute Nucleated RBC (0.00-0.012) x10^3u/L Lymphocytes % (21.8-53.1) % Monocytes % (5.3-12.2) % Eosinophils % (0.8-7.0) % Basophils % (0.2-1.2) % Absolute Granulocytes (1.78-5.38) x10^3/uL Basophils # (0.01-0.08) x10^3/uL D-Dimer (0.0-0.50) mg/L Sodium (135-145) mmol/L Potassium (3.5-5.1) mmol/L Chloride (98-107) mmol/L Carbon Dioxide (22-30) mmol/L Anion Gap (5-15) MEQ/L BUN (9-20) mg/dL Creatinine (0.66-1.25) mg/dL Estimated GFR ML/MIN Glucose (74-106) mg/dL POC Glucometer 236 H (74 to 106) mg/dL Hemoglobin A1c (4.5-6.0) % Lactic Acid (0.4-2.0) Calcium (8.4-10.2) mg/dL Total Bilirubin (0.2-1.3) mg/dL AST (17-59) U/L ALT (0-50) U/L Alkaline Phosphatase (38-126) U/L Troponin I (0.000-0.033) ng/mL Serum Total Protein (6.3-8.2) g/dL Albumin (3.5-5.0) g/dL Procalcitonin (0.030-0.080) ng/mL Micro Results-Entire Visit: Accuchecks Date 11/05/24 Date 11/05/24 Date 11/04/24 Time 16:54 - Radiology Exams Ordered Rad Exams-Entire Visit: Radiology Procedures Category Date Time Status CHEST 1 VIEW (PORTABLE) Stat Exams 11/04/24 10:50 Completed CHEST WITH CONTRAST [CT] Stat Exams 11/04/24 11:53 Completed - Procedures and Test Procedures and Tests throughout Hospitalization: Therapy Orders & Screens 11/04/24 15:56 Respiratory Therapy Consult ONCE Comment: Reason For Exam: Diagnosis: sepsis/pneuomonia Discharge Exam General Appearance: no apparent distress, alert Neurologic Exam: alert, oriented x 3, cooperative, normal mood/affect, nml cerebellar function, sensation nml, No motor deficits Eye Exam: PERRL, EOMI, eyes nml inspection Ears, Nose, Throat Exam: normal ENT inspection, pharynx normal, moist mucous membranes Neck Exam: normal inspection, non-tender, supple, full range of motion Respiratory Exam: normal breath sounds, lungs clear, No respiratory distress Cardiovascular Exam: regular rate/rhythm, normal heart sounds Gastrointestinal/Abdomen Exam: soft, No tenderness, No mass Male Genitalia Exam: deferred Rectal Exam: deferred Back Exam: normal inspection, normal range of motion, No CVA tenderness, No vertebral tenderness Extremity Exam: normal inspection, normal range of motion Skin Exam: normal color, warm, dry Final Diagnosis/Problem List - Final Discharge Diagnosis/Problem (1) Pneumonia Current Visit: Yes Status: Acute Assessment & Plan: -CT chest showing Inhomogenous opacification seen in the medial segment of the right middle lobe suggests infective consolidative changes.A few solid nodules in both lung were noted, measuring 0.3-0.7 cm (three month follow up advised). No pleural effusion or pleural thickening. Mild reactive-looking right hilum and mediastinal lymphadenopathy. - Bc x2 pending- will follow OP -WBC 10.1- today improved from 17.1 yesterday -Ceftriaxone/azithromycin started in ED- continue -Strict I&O -Respiratory panel negative - Room air 98% - Lung sounds clear - OP appointment made with Pulm for f/u of nodules Code(s): J18.9 - PNEUMONIA, UNSPECIFIED ORGANISM (2) Sepsis Current Visit: Yes Status: Resolved Assessment & Plan: - resolved - Lactic acid 1.9 this AM - 2:2 pneumonia -meets criteria with fever, tachycardia, tachypnea, elevated WBC and lactic acidosis -Bcult pending- will follow OP -Sputum culture pending- will follow OP (3) High anion gap metabolic acidosis Current Visit: Yes Status: Acute Assessment & Plan: -Secondary to sepsis - continue IVF/abx - Anion gap 19.2 - Co2 22- improved - F/U OP with PCP for repeat labs Code(s): E87.29 - OTHER ACIDOSIS (4) COPD (chronic obstructive pulmonary disease) Current Visit: Yes Status: Acute Assessment & Plan: -RT eval -Supplemental oxygen with goal spo2 > 91% - Today room air -Nebs/INH (5) Diabetes mellitus Current Visit: Yes Status: Chronic Assessment & Plan: - Type II -SSI -accuchecks ac/hs -A1c- 5.93- controlled -ADA diet Code(s): E11.9 - TYPE 2 DIABETES MELLITUS WITHOUT COMPLICATIONS (6) HLD (hyperlipidemia) Current Visit: Yes Status: Chronic Assessment & Plan: -continue statin Code(s): E78.5 - HYPERLIPIDEMIA, UNSPECIFIED (7) Hyponatremia Current Visit: Yes Status: Resolved Assessment & Plan: - resolved Code(s): E87.1 - HYPO-OSMOLALITY AND HYPONATREMIA (8) Near syncope Current Visit: Yes Status: Resolved Assessment & Plan: - resolved (9) Hypertension Current Visit: No Status: Chronic Assessment & Plan: -BP stable - continue home meds Code(s): I10 - ESSENTIAL (PRIMARY) HYPERTENSION (10) Obesity (BMI 30-39.9) Current Visit: Yes Status: Chronic Assessment & Plan: - advised ADA diet and exercise control Code(s): E66.9 - OBESITY, UNSPECIFIED (11) Bipolar 1 disorder Current Visit: Yes Status: Chronic Assessment & Plan: -continue home meds Code(s): F31.9 - BIPOLAR DISORDER, UNSPECIFIED - Discharge Discharge Date: 11/05/24 Disposition: Home, Self-Care Condition: Good Prescriptions: Continue Rosuvastatin Calcium [Crestor] 10 mg PO DAILY Ipratropium/Albuterol Sulfate [Iprat-Albut 0.5-3(2.5) mg/3 ml] 1 neb IH QID PRN PRN Reason: Shortness Of Breath Valsartan/Hydrochlorothiazide [Valsartan-Hctz 80-12.5 mg Tab] 1 tab PO DAILY Metformin HCl 500 mg [Glucophage 500 MG] 500 mg PO BID Glimepiride 4 mg [Amaryl 4 mg] 4 mg PO DAILY Fluticasone Propionate [Flonase NASAL] 1 spray INTRANASAL DAILY Fluticasone/Vilanterol [Breo Ellipta 100-25 Mcg Inhalr] 1 puff PO DAILY Mupirocin [Bactroban OINTMENT] See Rx Instructions .ROUTE .COMPLEX Semaglutide [Ozempic] 0.25 mg SQ WEEKLY Meloxicam 7.5 mg PO BID Follow up with: SIMON LOPEZ [ACTIVE STAFF] - 12/06/24 9:15 am JOEL PRITCHETT MD [Primary Care Provider] - 11/12/24 3:30 pm ([facility])
[2024-11-05] MEDS: Zithromax 500 MG/ 250 ML NaCl Premix 500 MG/250 ML IVPB IV SCH (11:59)
== END 2024-11-05 13:39 | disposition home or self-care (01) ==
LOC: ED 10:29 → MED SURG 15:18
PROVIDERS: ADMIT Internal Medicine; ATTEND Internal Medicine
DX: J18.9 Pneumonia, unspecified organism (principal); A41.9 Sepsis, unspecified organism; E87.29 Other acidosis; J44.9 Chronic obstructive pulmonary disease, unspecified; E11.9 Type 2 diabetes mellitus without complications; E78.5 Hyperlipidemia, unspecified; E87.1 Hypo-osmolality and hyponatremia; R55 Syncope and collapse; I10 Essential (primary) hypertension; E66.9 Obesity, unspecified; F31.9 Bipolar disorder, unspecified; R50.9 Fever, unspecified; R00.0 Tachycardia, unspecified; D72.829 Elevated white blood cell count, unspecified; Z79.899 Other long term (current) drug therapy
CPT/HCPCS: 0241U; 36415; 71045; 71260; 80053; 82947; 83036; 83605; 84145; 84484; 85025; 85379; 87040; 87070; 93005; 93041; 94640; 94760; 99284; G0378; J0456; J0696; J2919; Q3014; A9270-GY